=== PATIENT | female | born 1940 | race Caucasian/White ===

== ENCOUNTER 2016-08-07 14:51 | Inpatient (IN) | payer MEDICARE, BC, MEDICAID ==
[~2016-08-07] VITALS: Ht 165.1 cm; Wt 67.4 kg
[~2016-08-07 14:51] MED LIST: ACET-2321 PO; ACET1TAB25 PO; ALBU8.5H INH; AMPH20CA PO; ASPI-1115 PO; BENZ200C36 PO; BIOT10003 PO; BUSP15TA3 PO; CELE100C PO; CHOL400T11 PO; CYAN500T54 SL; ESCI20TA PO; FERR325T40 PO; FLUT9.9S EA NOSTRIL; GLUC100015 PO; LORA0.5T2 PO; LORA0.5T86 PO; MIRA50TA PO; MONT10TA25 PO; MULT-543 PO; ONDA4TAB7 PO; POLY17PO6 PO; POTA20TA87 PO; PRAV20TA4 PO; TRAZ-173 PO; [UNRECOGNIZED DRUG - CODE] PO
--- OUTSIDE RECORDS SUMMARY | 2016-08-07 14:56 | XMS REPORT | Continuity of Care Document ---
Author Author [facility] Organization [facility] Address Unknown Phone Unavailable Support Name Relationship Address Phone HARISH WOODALL Lily GUERRA Caregiver Unknown Unavailable PAWAN ORTEGA MD Caregiver [address] [place] [id number] Unavailable PAWAN ORTEGA MD Caregiver [address] [place] [id number] Unavailable SUNDEEP OLSON Next Of Kin [address], [place] [id number] Insurance Providers Guarantor Leonie Olson Address [address] [place] [address] Email DENIED/NO TO PT PORTAL Payer Medicare Policy Number [id number] Subscriber's Name WesleyGaryLeonie A Relationship 18 Self Effective Date 06 Payer Wish Federal Policy Number [id number] Subscriber's Name Sundeep Olson Relationship 01 Spouse Group Number [id number] Effective Date 87 Advance Directives Directive Response Recorded Date/Time Ordered Resuscitation Status Full Code 10/06/15 11:54am Resuscitation Documents on File No 10/06/15 11:32am DPOA for Healthcare Only Yes 10/06/15 11:32am Problems Active Problems Medical Problem Onset Date Status Ambulatory dysfunction Unknown Chronic Anemia Unknown Acute Balance problem Unknown Chronic CAD (coronary artery disease) Unknown CAD (coronary artery disease) of bypass graft Unknown Chronic DJD (degenerative joint disease) Unknown Chronic Degenerative arthritis of right knee Unknown Chronic Depression Unknown Chronic Fracture of left hip Unknown Acute Generalized weakness Unknown Chronic Hyperlipemia Unknown Chronic Hypertension Unknown Chronic Hypokalemia Unknown Acute Hypothyroidism Unknown Chronic Memory loss Unknown Chronic Overweight (BMI 25.0-29.9) Unknown Chronic SunDown syndrome Unknown Medications Current Home Medications Medication Dose Units Route Directions Days Qty Instructions Start Date Albuterol Sulfate (Proair Hfa 90 Mcg/Actuation) 8.5 Gm Hfa.aer.ad 1 Puff Inhalation Every 4 Hours Prn 05/31/15 Ascorbic Acid (Vitamin C) 500 Mg Tablet 500 Mg Oral Daily Aspirin (Ecotrin) 325 Mg Tablet 325 Mg Oral Twice A Day 84 Tablet take for 6 weeks for DVT prevention 06/17/15 Benzonatate 200 Mg Capsule 1 Cap Oral Three Times A Day as needed for Cough DO NOT BITE, CHEW, OR CRUSH 05/31/15 Cyanocobalamin (Cyanocobalamin Injection) 1,000 Mcg/Ml Vial 1,000 Mcg Intramusc Daily 5 Days 10/10/15 Cyanocobalamin (Vitamin B-12) (Vitamin B-12) 500 Mcg Tab.subl 1 Tab Sublingual Daily 05/31/15 Enoxaparin Sodium (Lovenox) 40 Mg/0.4 Ml Inj 40 Mg Sub-Q Every 24 Hours for Dvt Prevention 17 Days 10/10/15 Escitalopram Oxalate (Lexapro) 20 Mg Tablet 1 Tab Oral Daily Ferrous Sulfate (Iron Supplement) 325 Mg Tablet 1 Tab Oral Daily for Anemia 30 Tablet 10/10/15 Glucosamine Sulfate 2KCL (Glucosamine) 1,000 Mg Tablet 1 Tab Oral Daily 05/31/15 Hydrocodone/Apap 7.5/325 Mg ([place] 7.5-325 Tablet) 7.5-325 Tablet 1-2 Tab Oral Every 6 Hours as needed for Pain 30 Tablet 10/10/15 Montelukast Sodium 10 Mg Tablet 10 Mg Oral Bedtime Take 1 tablet, by mouth, one time a day (at bedtime). 05/31/15 Multivitamins (Multiple Vitamin) 1 Tab Tablet 1 Tab Oral Daily Mv-Mn/Iron/Fa/Herbal Cmplx#190 (Vitamin D3 Complete Caplet) 1 Each Tablet 1 Tab Oral Daily 05/31/15 [place]-3S/Dha/Epa/Fish Oil/D3 ([place]-3 + D Softgel) 1 Each Capsule. 1 Cap Oral Daily 05/31/15 Ondansetron Hcl 4 Mg Tablet 1 Tab Oral Every 6 Hr Prn as needed for Nausea 10 Tablet 10/10/15 Polyethylene Glycol 3350 (Miralax) 17 Gm Packet 17 Gm Oral Daily 30 Packet 06/15/15 Potassium Chloride 20 Meq Tab.er.prt 2 Tab Oral Twice A Day 05/31 Pravastatin Sodium 20 Mg Tablet 1 Tab Oral Bedtime 05/31/15 Sennosides/Docusate Sodium (Senna Plus Tablet) 1 Tab Tablet 1 Tab Oral Twice A Day as needed for Constipation 30 Tablet 10/10/15 Spironolactone 25 Mg Tablet 25 Mg Oral Twice A Day 05/31/15 Terbinafine Hcl 250 Mg Tablet 1 Tab Oral Daily 05/31/15 Past Home Medications Medication Directions Ordered Status Aspirin (Ecotrin) 325 Mg Tablet, 325 Mg Oral Twice A Day 06/15/15 Discontinued Aspirin 325 Mg Tablet, 1 Tab Oral Daily 05/31/15 Discontinued Aspirin/Caffeine (Anacin 400-32 Mg Tablet) 1 Each Tablet, 2 Tab Oral As Needed 06/14/15 Discontinued Hydrocodone/Acetaminophen (Hydrocodon-Acetaminophen 5-325) 1 Tab Tablet, 1-2 Tab Oral Every 5 Hours as needed for Pain 06/15/15 Discontinued Social History Social History Problem Response Recorded Date/Time Onset Date Status Hx Substance Use No 06/14/2015 6:13am Not Applicable Not Applicable Hx Alcohol Use No 06/14/2015 6:13am Not Applicable Not Applicable Has the pt used tobacco in the last 12 months No 10/06/2015 11:38am Not Applicable Not Applicable Tobacco Usage none 10/06/2015 12:49pm Not Applicable Not Applicable Query Response Start Date Stop Date Smoking Status Former smoker Hospital Discharge Instructions Instructions: Care Instructions: Reason for Hospitalization: LEFT HIP FRACTURE I was in the hospital because (patient own words): "I FELL THIS MORNING AND BROKE MY LEFT HIP" Discharge Diet: TOLERATED Discharge Activity: Weight bearing as tolerated on the left leg. Avoid pivoting or twisting on the left leg. Keep the wounds dry. Change dressings PRN. Follow Up Appointments: Андрей ADAMS in [place] on October 27 @ 10:00 am. Pending Lab / Results: No Pending Lab Patient Instructions: Ambulate with a walker. Wt bearing as tolerated on the operative leg. Wound/Incision Care: Change the dressings as needed. Keep the incisions dry. Condition at time of discharge: Good Plan of Care Discharge Date 10/10/15 3:35pm Disposition 03 TO U NOT [facility] ([facility]) Instructions/Education Provided [facility] Postop Instructions Prescriptions See Medication Section Care Plan and Goals See Discharge Instructions Section Functional Status Query Response Date Recorded Mobility Status Ambulatory w/assist October 10, 2015 3:11pm Assistive Devices Front Wheeled Walker October 10, 2015 3:11pm Activity Limitations Weakness Pain October 10, 2015 3:11pm Feeding Ability Independent October 10, 2015 3:11pm Toileting Ability Assist October 10, 2015 3:11pm Grooming Ability Assist October 10, 2015 3:11pm Dressing Ability Assist October 10, 2015 3:11pm Driving Ability Dependent October 10, 2015 3:11pm Housework Ability Assist October 10, 2015 3:11pm Meal Preparation Ability Assist October 10, 2015 3:11pm Stair Climbing Ability Assist October 10, 2015 3:11pm Ability to complete ADL's impeded by Impaired Mobility October 10, 2015 3:11pm Cognitive/Perceptual Impairments Impaired vision October 10, 2015 3:11pm Visual Assistive Devices Glasses With patient October 09, 2015 11:33am Preferred Method of Learning Reading Listening October 09, 2015 11:33am Allergies, Adverse Reactions, Alerts Allergen Type Severity Reaction Status Last Updated Penicillin Allergy Unknown HIVES Active 05/30/15 Immunizations Query Response on File Recorded Date/Time Hx Influenza Vaccination Y FALL 201410/06/15 11:38am Hx Pneumococcal Vaccination Y GIVEN IN [facility] 201410/06/15 11:38am Hx Influenza Vaccination Y FALL 201410/06/15 11:38am Influenza Vaccine Hx fall of 201406/14/15 10:45am Vital Signs Acute Vital Signs Vital Response Date/Time Temperature (Fahrenheit) 97.4 deg F (96.8 - 99.1) 10/10/2015 8:36am Temperature (Calculated Celsius) 36.78458 degrees C (36.0 - 37.3) 10/10/2015 8:36am Temperature Source Oral 10/10/2015 8:36am Pulse Rate (adult) 86 bpm (60 - 100) 10/10/2015 8:36am Respiratory Rate 12 breaths/min (10 - 20) 10/10/2015 8:36am O2 Sat by Pulse Oximetry 95 % (90 - 100) 10/10/2015 8:36am Oxygen Delivery Method Room Air 10/10/2015 8:36am Oxygen Delivery Method Room Air 10/06/2015 9:15pm Oxygen Flow Rate 5.00 L/min 10/10/2015 8:36am Blood Pressure 135/75 mm Hg 10/10/2015 8:36am Blood Pressure Source Automatic Cuff 10/10/2015 8:36am Height (Feet) 5 feet 10/10/2015 1:20pm Height (Inches) 5.00 inches 10/10/2015 1:20pm Weight (Kilograms) 76.900 kg 10/10/2015 7:20am Body Mass Index (BMI) 25.8 10/06/2015 11:19am Results Laboratory Results Test Name Result Units Flags Reference Collection Date/Time Result Date/ Time Comments White Blood Count 5.7 T/MM3 4.5-11.0 10/10/2015 4:06am 10/10/2015 5: 05am Red Blood Count 2.95 M/MM3 L 4.00-5.20 10/10/2015 4:06am 10/10/2015 5: 05am Hemoglobin 8.6 GM/DL L 12-16 10/10/2015 4:06am 10/10/2015 5:05am Hematocrit 25.6 % L 36-46 10/10/2015 4:06am 10/10/2015 5:05am Mean Corpuscular Volume 86.8 UM3 80-100 10/10/2015 4:06am 10/10/2015 5: 05am Mean Corpuscular Hemoglobin 29.2 UUG 26-34 10/10/2015 4:06am 2015 5:05am Mean Corpuscular Hemoglobin Concent 33.6 GM/DL 31-37 10/10/2015 4:06am 10/10/2015 5:05am RDW Standard Deviation 59.8 FL H 36.9-50.2 10/10/2015 4:10/10/2015 5:05am Platelet Count 133 T/MM3 130-400 10/10/2015 4:am 10/10/2015 5:05am Mean Platelet Volume 9.3 UM3 L 9.4-12.4 10/10/2015 4:06am 10/10/2015 5: 05am Neutrophils (%) (Auto) 66.7 % H 33-66 10/10/2015 4:06am 10/10/2015 5: 05am Lymphocytes (%) (Auto) 19.7 % L 23-45 10/10/2015 4:0610/10/2015 5: 05am Monocytes (%) (Auto) 10.3 % H 0-9.0 10/10/2015 4:06am 10/10/2015 5:05am Eosinophils (%) (Auto) 2.8 % 0-4 10/10/2015 4:10/10/2015 5:05am Basophils (%) (Auto) 0.2 % 0-2 10/10/2015 4:10/10/2015 5:05am Immature Granulocyte % (Auto) 0.3 % 0.0-0.5 10/10/2015 4:2015 5:05am Absolute Neutrophils (auto) 3.8 T/MM3 1.8-7.7 10/10/2015 4:2015 5:05am Absolute Lymphocytes (auto) 1.1 T/MM3 1-4.8 10/10/2015 4:2015 5:05am Absolute Monocytes (auto) 0.6 T/MM3 0-0.8 10/10/2015 4:10/10/2015 5:05am Absolute Eosinophils (auto) 0.2 T/MM3 0-0.5 10/10/2015 4:2015 5:05am Absolute Basophils (auto) 0.0 T/MM3 0-0.2 10/10/2015 4:10/10/2015 5:05am Absolute Immature Granulocyte (auto 0.02 T/MM3 0.00-0.03 10/10/2015 4: 10/10/2015 5:05am Absolute Reticulocyte Count 0.0403 T/MM3 0.0300-0.0900 10/08/2015 4: 1210/08/2015 9:24am Percent Reticulocyte Count 1.9 % H 0.6-1.7 10/08/2015 4:1210/08/2015 9:24am Immature Reticulocyte Fraction 3.3 % 3.3-14.5 10/08/2015 4:122015 9:24am Reticulocyte Hgb Content (CHr) 35.3 PG 30.8-36.6 10/08/2015 4:12 9:24am Prothromb Time International Ratio 1.05 0.99-1.21 10/06/2015 12:01pm 10/06/2015 12:20pm THERAPUTIC RANGE=2.00-3.00 FOR ANTI-THROMBOSIS THERAPUTIC RANGE=2.50-3.50 FOR IMPLANTED VALVE Activated Partial Thromboplast Time 27.5 SEC 24-36 10/06/2015 12:01pm 10/06/2015 12:20pm Icterus Index < 2 0-7 10/10/2015 4:0610/10/2015 5:27am Chemistry Specimen Hemolysis < 15 0-25 10/10/2015 4:0610/10/2015 5 :27am 0-25: Specimen Exhibited No Hemolysis. Turbidity < 20 0-20 10/10/2015 4:0610/10/2015 5:27am Sodium Level 138 MEQ/L 134-144 10/10/2015 4:0610/10/2015 5:27am Potassium Level 3.4 MEQ/L L 3.6-5 10/10/2015 4:10/10/2015 5:27am Chloride Level 107 MEQ/L 98-107 10/10/2015 4:0610/10/2015 5:27am Carbon Dioxide Level 25 MEQ/L 22-30 10/10/2015 4:10/10/2015 5: 27am Anion Gap 6 MEQ/L 5-15 10/10/2015 4:0610/10/2015 5:27am Blood Urea Nitrogen 12.0 MG/DL 7-17 10/10/2015 4:0610/10/2015 5: 27am Creatinine 0.6 MG/DL L 0.7-1.2 10/10/2015 4:0610/10/2015 5:27am BUN/Creatinine Ratio 20 RATIO 6-26 10/10/2015 4:10/10/2015 5:27am Glomerular Filtration Rate Calc 98 10/10/2015 4:10/10/2015 5: 27am Glucose Level 98 MG/DL 65-110 10/10/2015 4:10/10/2015 5:27am Calculated Osmolality 266 MOSM/KG 261-280 10/10/2015 4:10/10/2015 5:27am Calcium Level 8.0 MG/DL L 8.4-10.2 10/10/2015 4:0610/10/2015 5:27am Magnesium Level 1.8 MG/DL 1.6-2.3 10/08/2015 4:1210/08/2015 5:17am Iron Level 26 UG/DL L 37-170 10/08/2015 4:12am 10/10/2015 4:40am Total Iron Binding Capacity 226 UG/DL L 261-497 10/08/2015 4:12am 2015 4:40am Percent Iron Saturation 12 % 9-55 10/08/2015 4:12am 10/10/2015 4:40am Vitamin B12 Level 198 PG/ML L 239-931 10/08/2015 4:12am 10/10/2015 4: 40am Folate 15.4 NG/ML 2.76-20 10/08/2015 4:12am 10/10/2015 4:40am NORMAL ADULT RANGE: 2.76->20 ng/mL Urine Collection Type CANAS INDWELLING 10/06/2015 12:35pm 2015 12:48pm Urine Color YELLOW YELLOW 10/06/2015 12:35pm 10/06/2015 12:48pm Urine Turbidity CLEAR CLEAR 10/06/2015 12:35pm 10/06/2015 12:48pm Urine Specific [place] >=1.030 H 1.015-1.025 10/06/2015 12:35pm 2015 12:48pm Urine pH 5.0 5.0-8.0 10/06/2015 12:35pm 10/06/2015 12:48pm Urine Leukocyte Esterase NEGATIVE NEGATIVE 10/06/2015 12:35pm 2015 12:48pm Urine Nitrite NEGATIVE NEGATIVE 10/06/2015 12:35pm 10/06/2015 12: 48pm Urine Protein NEGATIVE NEGATIVE 10/06/2015 12:35pm 10/06/2015 12: 48pm Urine Glucose (UA) NEGATIVE NEGATIVE 10/06/2015 12:35pm 10/06/2015 12 :48pm Urine Ketones NEGATIVE NEGATIVE 10/06/2015 12:35pm 10/06/2015 12: 48pm Urine Urobilinogen 0.2 EU/DL NORMAL 10/06/2015 12:35pm 10/06/2015 12: 48pm Urine Bilirubin NEGATIVE NEGATIVE 10/06/2015 12:35pm 10/06/2015 12: 48pm Urine Blood 1+ A NEGATIVE 10/06/2015 12:35pm 10/06/2015 12:48pm Urine WBC 0-1 /HPF 0-5 10/06/2015 12:35pm 10/06/2015 12:56pm Urine RBC 1-3 /HPF 0-3 10/06/2015 12:35pm 10/06/2015 12:56pm Urine Squamous Epithelial Cells 0-5 10/06/2015 12:35pm 10/06/2015 12:56pm Urine Bacteria TRACE H NEGATIVE 10/06/2015 12:35pm 10/06/2015 12:56pm Urine Amorphous Urates FEW 10/06/2015 12:35pm 10/06/2015 12:56pm Urine Hyaline Casts 0-1 /LPF 10/06/2015 12:35pm 10/06/2015 12:56pm Urine Culture Indicated CULT NOT INDICATED 10/06/2015 12:35pm 10/05 12:56pm Name: LEONIE OLSON Unit #: [id number] : 1940 Sex: F Admit Date: 10/06/15 Loc / Svc: SRG Discharge Date: DIAGNOSTIC IMAGING REPORT Report #: [id number] [place], [place] Indication: ITS.REASON: GAMMA NAIL LEFT HIP PROCEDURE: RF HIP LEFT 2 VIEW: Encounter: Initial Comparison: Outside radiographs from earlier today Findings: Eight fluoroscopic spot images are submitted for interpretation. Images show open reduction and internal fixation of the intertrochanteric left femoral fracture with placement of an intramedullary nail and compression screw. Improved alignment of the fracture fragments. Two threaded distal interlocking screws. Impression: Intraoperative fluoroscopy as above. Fluoroscopy time is 207 seconds. Fluoroscopy dose is 4080 mRad. . Procedures No known history of procedures. Encounters Encounter Location Arrival/Admit Date Discharge/Depart Date Attending Provider Discharged Inpatient [facility] 10/06/15 11:09am 10/10/15 3:35pm PAWAN ORTEGA MD
--- OUTSIDE RECORDS SUMMARY | 2016-08-07 14:56 | XMS REPORT | Continuity of Care Document ---
Demographics Preferred Language Unknown Marital Status Unknown Rastafari Affiliation Unknown Race Unknown Ethnic Group Unknown Author Author [facility] Organization [facility] Address Unknown Phone Unavailable Allergies Medications Problems Procedures Results Encounters ACCT No. Visit Date/Time Discharge Status Pt. Type Provider Facility Loc./Unit Complaint [id number] 07/14/2014 10:32:00 ACT Unknown [id number] 07/14/2014 10:32:00 ACT Unknown [id number] 05/11/2014 08:14:00 ACT Unknown [id number] 05/11/2014 07:45:00 ACT Unknown [id number] 07/06/2013 10:23:00 ACT Unknown [id number] 03/09/2013 10:47:00 ACT Unknown
[2016-08-07] MEDS ORDERED: TRAZ-170 PO (15:13)
--- NOTE | 2016-08-07 15:17 | NUR ---
PROVIDER DR NAVARRO AT BEDSIDE.
--- NOTE | 2016-08-07 15:24 | ERPDOC ---
Departure Disposition Decision Date: Aug 07, 2016 Disposition Decision Time: 16:11 Disposition: 66 TO [facility] Impression Impression Impression: Primary Impression: Depression Depression Type: unspecified Qualified Codes: F32.9 - Major depressive disorder, single episode, unspecified Additional Impression: UTI (urinary tract infection) Urinary tract infection type: acute cystitis Hematuria presence: with hematuria Qualified Codes: N30.01 - Acute cystitis with hematuria Severity: Mild Condition: Improved Seen By: Physician only Referrals: MELECIO SCHULZ MD (Family) Problems/Meds/Labs Reviewed?: Yes Medications reviewed and manag: Yes Follow up care ordered?: Yes Mental Status: Alert, Oriented HPI - Psychosocial General Chief Complaint: Suicide Ideation/Attempt Stated Complaint: EVAL FOR [facility] Time Seen by MD: 15:15 Source: patient (Patient presents to the ER for a [facility] Screen. Patient apparently has been depressed, and made statements Saturday night that if she had a gun, she'd use it. Patient is apparently in rehab from a prior femur fracture), RN notes reviewed, other (Patient has no complaints on examination, but becomes tearful easily.) Exam Limitations: no limitations HPI - Psychosocial Occurred At: home Onset: Changing over time Duration: other Severity: moderate Associated Symptoms: other, suicidal ideation Hx of Similar Symptoms: No Allergies: Coded Allergies: Penicillins (Verified Allergy, Unknown, HIVES, 05/30/15) Past History Patient Surgical History CABG x3- 2001 Cardiac stents- 2008 ECHO and stresstest- 05/2015 (Dr Singleton) Bunionectomy Right knee surgery- 06/2015 ( Dr Rangel) Past Medical History GI: GERD Psychological: depression Surgical History General: other Family History Family PMH: FOUND: other Vaccines Hx Influenza Vaccination: Yes (FALL 2015) Hx Pneumococcal Vaccination: Yes (GIVEN IN [facility] 2014) Social History Does patient use chewing tobac: No Second Hand Exposure: No Substance Use Type: does not use Alcohol Intake: none Marital Status: Sexuality: male partner Housing: group home Service: No Current Occupational Status: retired Occupational Hazard: No Advance Directives: Yes Full Code Record Review Pertinent history updated: Yes Review of Systems Constitutional Constitutional: DENIES: chills, fever Eyes Lids/Accessories: DENIES: erythema, swelling ENMT Ears: DENIES: erythema, pain Balance: DENIES: ataxia, vertigo Sinuses: DENIES: congestion, rhinorrhea Mouth/Throat: DENIES: sore throat Cardiovascular Cardiac: DENIES: chest pain, dyspnea on exertion, orthopnea Rhythm/Rate: DENIES: tachycardia Pulmonary Respiratory: DENIES: cough, dyspnea, sputum GI Upper Abdomen: DENIES: nausea, pain, vomiting Lower Abdomen: DENIES: constipation, diarrhea, pain General: DENIES: dysuria Musculoskeletal General: DENIES: cramps, pain, weakness Integumentary Skin: DENIES: color change, itching, rash Neurological General: DENIES: ataxia, change in strength, headache, numbness, poor coordination, seizures, syncope, vertigo, weakness Psychiatric Psychiatric: depression, suicidal ideation/attempt, DENIES: hallucinations, paranoia Hematologic/Lymphatic Hematologic/Lymphatic: DENIES: anemia Allergic/Immunological Allergic/Immunoligical: DENIES: sneezing All other Systems All Other Systems: Reviewed and Negative Physical Exam General General Nourishment: well nourished, well developed, appears stated age, adult , thin Vitals and Pain First Documented Vital Signs Date Time Temp Pulse Resp B/P Pulse Ox O2 Delivery O2 Flow Rate FiO2 08/07/16 15:05 98.5 92 16 126/61 93 Room Air Weight: Kilograms: 67.200 Height (feet): 5 Height (inches): 5.00 Triage Pain Scale: RN VS reviewed by Provider: Yes Eyes (brief) Eyes Brief: found: EOMI, PERRL ENMT (brief) ENMT Brief: FOUND: TM clear, TM good light reflex, mucosa moist, NOT FOUND: pharnyx erythema Neck (brief) Neck: FOUND: trachea midline, NOT FOUND: adenopathy, tenderness, tracheal deviation Respiratory (brief) Respiratory: FOUND: clear all [place], equal bilaterally Cardiovascular (brief) Cardiac: FOUND: regular rate, regular rhythm Capillary Refill: <2 sec Pulses: all distal extremities, equal, strong Abdomen (brief) Abdominal Brief: FOUND: bowel normo active x4, soft, NOT FOUND: distended, tender Lymphatic (brief) Lymphatic Brief: NOT FOUND: adenopathy Musculoskeletal (brief) Musculoskeletal Brief: NOT FOUND: spasm, tenderness Integumentary (brief) Integumentary Brief: FOUND: pink, warm Neurologic (brief) Neurological Brief: FOUND: CN w/o gross def to obs, gait w/o gross def to obs, motor-no gross deficits, sensory-no gross deficits, NOT FOUND: ataxia Psychiatric (brief) Psychiatric Brief: FOUND: alert, attentive, normal affect, oriented Differential Diagnoses Considering: Delirium, Dementia, Depression, Hallucinations, Homicidal Ideation , Hypoglycemia, [place], Acute Psychosis, Suicidal Attempt, Suicidal Gesture, Suicidal Ideation, Other Progress Results/Orders Orders Procedure Category Date Status Time Cbc W/Auto LAB 08/07/16 Complete Diff-Reflex Manual Cmp - Comprehensive LAB 08/07/16 Complete Metabolic Tsh - Thyroid Stim LAB 08/07/16 Complete Hormone EKG EKG 08/07/16 Taken UA, LAB 08/07/16 Complete Dip&Micro(Complete) & 15:43 Urine Culture CORNELIO 08/07/16 Logged 16:09 Ciprofloxacin (Cipro) PHA 08/07/16 Complete 16:15 Admit To [facility] ADM 08/07/16 Transmitted Unit (Gen) Lab Results Laboratory Tests Test 08/07/16 15:43 08/07/16 15:47 Urine Collection Type Cleancatch-midstream Urine Color Yellow Urine Turbidity Cloudy Urine pH 6.0 Urine Specific [place] 1.025 Urine Protein Trace Urine Glucose (UA) Negative Urine Ketones Negative Urine Blood 1+ Urine Nitrite Negative Urine Bilirubin Negative Urine Urobilinogen 1.0EU/DL Urine Leukocyte Esterase 2+ Urine RBC 3-5/HPF Urine WBC 20-30/HPF Urine WBC Clumps Few Urine Squamous Epithelial Cells 0-5 Urine Bacteria None seen Urine Culture Indicated Cult not indicated White Blood Count 6.1T/MM3 Red Blood Count 3.99M/MM3 Hemoglobin 12.6GM/DL Hematocrit 37.5% Mean Corpuscular Volume 94.0UM3 Mean Corpuscular Hemoglobin 31.6UUG Mean Corpuscular Hemoglobin Concent 33.6GM/DL RDW Standard Deviation 43.4FL Platelet Count 158T/MM3 Mean Platelet Volume 8.7UM3 Immature Granulocyte % (Auto) 0.0% Neutrophils (%) (Auto) 71.8% Lymphocytes (%) (Auto) 14.5% Monocytes (%) (Auto) 9.4% Eosinophils (%) (Auto) 4.1% Basophils (%) (Auto) 0.2% Absolute Immature Granulocyte (auto 0.00T/MM3 Absolute Neutrophils (auto) 4.4T/MM3 Absolute Lymphocytes (auto) 0.9T/MM3 Absolute Monocytes (auto) 0.6T/MM3 Absolute Eosinophils (auto) 0.3T/MM3 Absolute Basophils (auto) 0.0T/MM3 Turbidity < 20 Sodium Level 145MEQ/L Potassium Level 4.1MEQ/L Chloride Level 105MEQ/L Carbon Dioxide Level 26MEQ/L Anion Gap 14MEQ/L Blood Urea Nitrogen 19.0MG/DL Creatinine 0.8MG/DL Glomerular Filtration Rate Calc 70 BUN/Creatinine Ratio 24RATIO Glucose Level 100MG/DL Calculated Osmolality 281MOSM/KG Calcium Level 9.3MG/DL Total Bilirubin 0.60MG/DL Icterus Index < 2 Aspartate Amino Transf (AST/SGOT) 23U/L Alanine Aminotransferase (ALT/SGPT) 29U/L Alkaline Phosphatase 66U/L Total Protein 6.7G/DL Albumin 4.0G/DL Globulin 2.7G/DL Albumin/Globulin Ratio 1.5RATIO Thyroid Stimulating Hormone (TSH) 0.37MIU/L Chemistry Specimen Hemolysis < 15 Medications Current ED Medications Ciprofloxacin (Cipro) 500 mg O ONCE PO Last administered on 08/07/16t 16:17; Start 08/07/16 at 16:15; Stop 08/07/16 at 16:16; Status DC Progress Progress 16:09 Patient is medically clear for [facility] EKG EKG : Rate: 60-100 Rhythm: sinus [place]: normal QRS: normal Intervals: normal ST/T: non-specific changes Interpreted by: signing physician EKG ScImage/Picomm EKG interpreted in ScImage/Pic: CUATE Valentine DO Aug 07, 2016 15:24
--- OUTSIDE RECORDS SUMMARY | 2016-08-07 15:24 | XMS REPORT | Continuity of Care Document ---
Demographics Preferred Language Unknown Marital Status Unknown Mormonism Affiliation Unknown Race Unknown Ethnic Group Unknown Author Author [facility] Organization [facility] Address Unknown Phone Unavailable Allergies Medications Problems Procedures Results Encounters ACCT No. Visit Date/Time Discharge Status Pt. Type Provider Facility Loc./Unit Complaint [id number] 07/14/2014 10:32:00 ACT Unknown [id number] 07/14/2014 10:32:00 ACT Unknown [id number] 05/11/2014 08:14:00 ACT Unknown [id number] 05/11/2014 07:45:00 ACT Unknown [id number] 07/06/2013 10:23:00 ACT Unknown [id number] 03/09/2013 10:47:00 ACT Unknown
[2016-08-07] MEDS ORDERED: POLY119P3 PO (15:28)
--- NOTE | 2016-08-07 15:29 | NUR ---
REPORT GIVEN TO JAVED PALACIOS. CARE ASSUMED.
[2016-08-07] MEDS ORDERED: SENN-152 PO (15:30)
[2016-08-07] MEDS ORDERED: PROP15DR30 BOTH EYES (15:31)
[2016-08-07 15:55] LABS: BLOOD, URINE 1+ (NEGATIVE); COLOR,URINE YELLOW (YELLOW); LEUKOCYTE ESTERASE ,URINE 2+ (NEGATIVE); NITRITE,URINE NEGATIVE (NEGATIVE)
[2016-08-07 15:59] LABS: BASOPHILS % (AUTO) 0.2 % (0-2); EOSINOPHILS # (AUTO) 0.3 T/MM3 (0-0.5); EOSINOPHILS % (AUTO) 4.1 % (0-4); HCT - HEMATOCRIT 37.5 % (36-46); HGB - HEMOGLOBIN 12.6 GM/DL (12-16); LYMPHOCYTES # (AUTO) 0.9 T/MM3 (1-4.8); LYMPHOCYTES % (AUTO) 14.5 % (23-45); MEAN CORPUSCULAR HGB 31.6 UUG (26-34); MEAN CORPUSCULAR HGB CONC(MCHC 33.6 GM/DL (31-37); MEAN PLATELET VOLUME 8.7 UM3 (9.4-12.4); MONOCYTES # (AUTO) 0.6 T/MM3 (0-0.8); MONOCYTES % (AUTO) 9.4 % (0-9.0); NEUTROPHILS #(AUTO)-ABSOLUTE 4.4 T/MM3 (1.8-7.7); NEUTROPHILS % (AUTO) 71.8 % (33-66); RED BLOOD COUNT 3.99 M/MM3 (4.00-5.20); WBC - WHITE BLOOD COUNT 6.1 T/MM3 (4.5-11.0)
[2016-08-07 16:03] LABS: ALBUMIN/GLOBULIN RATIO 1.5 RATIO (1.1-2.2); ALKALINE PHOSPHATASE 66 U/L (38-126); ALT (SGPT) 29 U/L (9-52); ANION GAP 14 MEQ/L (5-15); AST (SGOT) 23 U/L (14-36); BUN/CREATININE RATIO 24 RATIO (6-26); CALCIUM 9.3 MG/DL (8.4-10.2); CHLORIDE 105 MEQ/L (98-107); CO2 - CARBON DIOXIDE 26 MEQ/L (22-30); CREATININE 0.8 MG/DL (0.7-1.2); GLOMERULAR FILTRATION RATE 70; GLUCOSE 100 MG/DL (65-110); POTASSIUM 4.1 MEQ/L (3.6-5); SODIUM 145 MEQ/L (134-144); TOTAL PROTEIN 6.7 G/DL (6.3-8.2)
[2016-08-07 16:05] LABS: BACTERIA,URINE NONE SEEN (NEGATIVE); SQUAMOUS EPITHELIAL CELL,UR 0-5; WBC CLUMPS,URINE FEW; WBC,URINE 20-30 /HPF (0-5)
--- NOTE | 2016-08-07 16:06 | NUR ---
Anxiety Pt verbalizes anxiety over current state of life. Wants to have surgery to correct her leg and ambulation so that she can return to her private residence. Pt is not able to verbalize why her PCP states she can not return home.
[2016-08-07] MEDS ORDERED: CIPROFLOXACIN 500 MG TABLET PO ONE (16:15)
--- OUTSIDE RECORDS SUMMARY | 2016-08-07 16:28 | XMS REPORT | Continuity of Care Document ---
Demographics Preferred Language Unknown Marital Status Unknown Anabaptist Affiliation Unknown Race Unknown Ethnic Group Unknown Author Author [facility] Organization [facility] Address Unknown Phone Unavailable Allergies Medications Problems Procedures Results Encounters ACCT No. Visit Date/Time Discharge Status Pt. Type Provider Facility Loc./Unit Complaint [id number] 07/14/2014 10:32:00 ACT Unknown [id number] 07/14/2014 10:32:00 ACT Unknown [id number] 05/11/2014 08:14:00 ACT Unknown [id number] 05/11/2014 07:45:00 ACT Unknown [id number] 07/06/2013 10:23:00 ACT Unknown [id number] 03/09/2013 10:47:00 ACT Unknown
[2016-08-07 16:33] LABS: THYROID STIM HORMONE-TSH 0.37 MIU/L (0.47-4.68)
[2016-08-07] MEDS ORDERED: LORAZEPAM 2 MG/ML INJECTION IM PRN (17:00)
[2016-08-07] MEDS ORDERED: LORAZEPAM 0.5 MG TABLET PO PRN (17:00)
[2016-08-07] MEDS ORDERED: HALOPERIDOL 5 MG/ML INJECTION IM PRN (17:00)
[2016-08-07] MEDS ORDERED: PRN ORDERS MC (17:00)
[2016-08-07] MEDS ORDERED: HALOPERIDOL 0.5 MG TABLET PO PRN (17:00)
[2016-08-07] MEDS ORDERED: ONDANSETRON ODT 4 MG TAB PO PRN (17:30)
[2016-08-07] MEDS ORDERED: ACETAMINOPHEN/CODEINE 300mg/30mg TABLET PO PRN (17:30)
[2016-08-07] MEDS ORDERED: POLYETHYL.GLYCOL 3350 PACKET 17gm PO PRN (17:30)
[2016-08-07] MEDS ORDERED: ACETAMINOPHEN 325 MG TABLET PO PRN (17:30)
[2016-08-07] MEDS ORDERED: SENNA + DOCUSATE TAB PO PRN (17:30)
[2016-08-07] MEDS ORDERED: BENZONATATE 200 MG CAPSULE PO PRN (17:30)
[2016-08-07] MEDS ORDERED: ALBUTEROL HFA INHALER 8gm ORAL INH SCH (17:30)
[2016-08-07 17:42] VITALS: BP 138/82; PULSE 90; RESP 16; TEMP 97.6; O2SAT 90
[2016-08-07 17:50] VITALS: Ht 165.1 cm; Wt 67.4 kg
--- NOTE | 2016-08-07 18:10 | NUR ---
ADMISSION PT is a 76 year old female admitted to [facility] unit 187. Pt comes to us from [facility] in [facility]. Pt was escorted to the unit by WC from the [facility] ED by [facility] staff at 1636. Pt is a x1 assist with transfers and ambulation and requires the use of a FWW. Pt was angry when coming on to the unit because she states that she was never told that this was happening. Pt was cooperative with assessment and no skin conditions or wounds were seen. Pt has a gold watch, a necklace, two rings and a pair of glasses that are currently with her. Pt states reason for admission as being " I think that they think im crazy". Pt and family were oriented to the unit.
[2016-08-07] MEDS ORDERED: ALBUTEROL INH.SOLN. 2.5mg/3ml (0.083%) Neb. AEROSOL PRN (18:15)
[2016-08-07 20:00] VITALS: PULSE 68; RESP 16; O2SAT 92
[2016-08-07 20:20] VITALS: BP 135/62; PULSE 78; RESP 18; TEMP 96.4; O2SAT 97
--- NOTE | 2016-08-07 20:30 | NUR ---
status arrived on shift, patient was in room visiting with family. Family left at 1915. Once family left patient was passive with assessment. A/Ox4. Patient is able to make needs known. During assessment patient denied pain or discomfort. Patient denied SI, stated she is struggling and just can't get out of it. Took scheduled medications whole without issue. Was asleep in bed at 2014.
[2016-08-07] MEDS: ASPIRIN *EC* 325mg TABLET PO SCH (20:57)
[2016-08-07] MEDS: MONTELUKAST 10 MG TABLET PO SCH (20:57)
[2016-08-07] MEDS: CELECOXIB 100 MG CAPSULE PO SCH (20:57)
[2016-08-07] MEDS: PRAVASTATIN 20 MG TABLET PO SCH (20:57)
[2016-08-07] MEDS: TRAZODONE 50 MG TABLET PO SCH (20:57)
[2016-08-07] MEDS: LORAZEPAM 0.5 MG TABLET PO SCH (21:02)
--- NOTE | 2016-08-08 07:00 | NUR ---
summary Patient woke once during the night after going to sleep to use restroom. While getting up to go to the bathroom patient complained of Left hip and leg pain. Patient received prn Tylenol #3 (2tabs) given po at 0049. Upon reassessment patient was asleep in bed with no signs of pain or discomfort. no further complaints noted. patient is currently still asleep in bed at this time. Patient is able to make needs known.
[2016-08-08] MEDS ORDERED: FISH1CAP28 PO (07:07)
[2016-08-08] MEDS ORDERED: [UNRECOGNIZED DRUG - CODE] PO (07:07)
[2016-08-08] MEDS ORDERED: AMPH20CA PO (07:07)
[2016-08-08 08:00] VITALS: BP 116/67; PULSE 86; RESP 16; TEMP 97.9; O2SAT 99
[2016-08-08] MEDS ORDERED: FERROUS SULFATE 324 MG TABLET PO SCH (08:00)
--- NOTE | 2016-08-08 08:00 | NUR ---
wake up note patient woke up at 0745 this morning
[2016-08-08] MEDS: MIRABEGRON 25 MG TABLET PO SCH (08:44)
[2016-08-08] MEDS: ESCITALOPRAM 20 MG TABLET PO SCH (08:44)
[2016-08-08] MEDS: CYANOCOBALAMIN (B-12) 500mcg TABLET PO SCH (08:44)
[2016-08-08] MEDS: CELECOXIB 100 MG CAPSULE PO SCH ×2 (08:47→19:07)
[2016-08-08] MEDS: CHOLECALCIFEROL 400 UNIT TABLET PO SCH (08:47)
[2016-08-08] MEDS: ASPIRIN *EC* 325mg TABLET PO SCH ×2 (08:47→19:07)
[2016-08-08] MEDS: LORAZEPAM 0.5 MG TABLET PO SCH ×4 (08:48→19:09)
[2016-08-08] MEDS: POTASSIUM CHLORIDE 20 MEQ TABLET PO SCH ×2 (08:48→17:48)
[2016-08-08] MEDS ORDERED: BIOTIN PO SCH (09:00)
[2016-08-08] MEDS ORDERED: FERROUS SULFATE 324 MG TABLET PO ONE (09:00)
[2016-08-08] MEDS: FLUTICASONE NASAL SPRAY 50 MCG EA NOSTRIL SCH (09:13)
[2016-08-08] MEDS: CIPROFLOXACIN 500 MG TABLET PO SCH ×2 (09:13→19:06)
--- NOTE | 2016-08-08 10:04 | HPPDOC ---
DELMA STAPLETON V ROTARY SHEAR WORKER HELPER 08/08/16 0951: HPI - Adult Date DATE: 08/08/16 TIME: 09:40 General Chief Complaint: Depression History of Present Illness Leonie is a 76 yr old female who was brought to [facility] emergency room for evaluation of depression and suicidal statement. Is reported that patient has been more depressed recently. On Saturday. She made a statement that if she had a gun, she did use it. She has been at [facility] in [place] rehabbing from a previous femur fracture. His medically evaluated in the emergency room yesterday. Laboratories are reviewed WBC count 6.0, RBCs 3.99 on a hemoglobin 12.6, hematocrit 37.5, platelet count 158, neutrophils 71.8. Sodium is 145, potassium 4.1, BUN 19, creatinine 0.8, glucose 100. Hemoglobin A1c 5.3. TSH is low at 0.37. A urinalysis was obtained showing a trace of protein, trace blood, 2+ leukocyte esterase, 3-5 RBCs with 20-30 WBCs. She was started on Cipro while the emergency room. She was then screened and accepted for the [facility] unit for further inpatient psychiatric evaluation and treatment. She is seen today while sitting in a recliner in the day room. She is alert and orientated. She states that she is not happy at [facility]. She states that she is scheduled for outpatient procedure with Dr. Rangel this Saturday08/10/16 for hardware change of the left hip. She questions if this is still planned. She denies having any discomfort, shortness of breath or GI complaints. She verbalize she is not sure why she is on the [facility] unit, however, that her primary care provider, Dr. Hinton in [place] told her she had dementia, however, she does not believe this. Past Medical History Past Medical History CAD HTN hypothyroidism Hyperlipidemia Depression Memory loss Surgical History Patient's Surgical History: CABG x3- 2000 Cardiac stents- 2008 ECHO and stresstest- 05/2015 (Dr Singleton) Bunionectomy Right knee surgery- 06/2015 ( Dr Rangel) Left hip surgery- 10/06/15- (Dr Rangel) Current Medications Home Meds Reported Medications Glucosamine Sulfate 2Kcl (Glucosamine Sulfate) 1,000 Mg Capsule, 1000 MG PO DAILY, MG 08/08/16 Edmore-3 Fatty Acids/Fish Oil (Edmore 3 1,000 mg Softgel) 1 Each Capsule, 1000 MG PO DAILY 08/08/16 Dextroamphetamine/Amphetamine (Adderall Xr 20 mg Capsule) 20 Mg Cap.er.24h, 20 MG PO DAILY, CAP 08/08/16 Propylene Glycol/Peg 400 (Lubricant Eye Drops) 15 Ml Drops, 1 DROP BOTH EYES DAILY 08/07/16 Sennosides/Docusate Sodium (Senna Plus Tablet) 1 Tab Tablet, 1 TAB PO BID Y for CONSTIPATION 08/07/16 Polyethylene Glycol 3350 (Miralax) 119 Gm Powder, 8.5-17 G PO DAILY Y for CONSTIPATION 08/07/16 Trazodone HCl (Trazodone HCl) 50 Mg Tablet, 50 MG PO HS 08/07/16 Acetaminophen (Tylenol) 325 Mg Tablet, 650 MG PO Q4-6HPRN Y for PAIN 07/17/16 Acetaminophen with Codeine (Acetaminophen-Cod #3 Tablet) 300-30 Tablet, 1-2 TAB PO Q4HPRN 07/17/16 Ondansetron (Zofran Odt) 4 Mg Tab.rapdis, 4 MG PO Q6HR Y for NAUSEA 07/17/16 Mirabegron (Myrbetriq) 50 Mg Tab.er.24h, 50 MG PO DAILY 07/17/16 Biotin (Biotin) 10,000 Mcg Capsule, 99976 MCG PO DAILY 07/17/16 Celecoxib (Celebrex) 100 Mg Capsule, 100 MG PO BID 07/17/16 Fluticasone Propionate (Flonase Allergy Relief 50 mcg/actuation Nasal) 9.9 Ml [place].susp, 1 SPRAY EA NOSTRIL DAILY 07/17/16 Dextroamphetamine/Amphetamine (Adderall Xr 20 mg Capsule) 20 Mg Cap.er.24h, 20 MG PO DAILY 07/16/16 Ferrous Sulfate (Iron) 325 Mg Tablet, 325 MG PO WB 07/16/16 Cholecalciferol (Vitamin D3) (Vitamin D3) 400 Unit Tablet, 400 UNIT PO DAILY 07/16/16 Aspirin *EC* (Ecotrin) 325 Mg Tablet.dr, 325 MG PO BID 07/16/16 Buspirone HCl (Buspirone HCl) 15 Mg Tablet, 15 MG PO DAILY 07/16/16 Lorazepam (Ativan) 0.5 Mg Tablet, 0.5 MG PO TID Y for ANXIETY 07/16/16 Lorazepam (Lorazepam) 0.5 Mg Tablet, 0.25 MG PO QID 07/16/16 Albuterol Sulfate (Proair HFA 90 mcg/actuation) 8.5 Gm Hfa.aer.ad, 1 PUFF INH Q4HPRN 05/31/15 Escitalopram Oxalate (Lexapro) 20 Mg Tablet, 20 MG PO DAILY 05/31/15 Potassium Chloride (Potassium Chloride) 20 Meq Tab.er.prt, 40 MEQ PO BID DISOLVE & MIX WITH PUDDING OR APPLESAUCE 05/31/15 Montelukast Sodium (Montelukast Sodium) 10 Mg Tablet, 10 MG PO HS 05/31/15 Benzonatate (Benzonatate) 200 Mg Capsule, 200 MG PO TID Y for COUGH 05/31/15 Edmore-3S/Dha/Epa/Fish Oil/D3 (Edmore-3 + D Softgel) 1 Each Capsule.dr, 1 CAP PO DAILY 05/31/15 Glucosamine Sulfate 2Kcl (Glucosamine) 1,000 Mg Tablet, 1000 MCG PO DAILY 05/31/15 Cyanocobalamin (Vitamin B-12) (Vitamin B-12) 500 Mcg Tab.subl, 500 MCG SL DAILY 05/31/15 Pravastatin Sodium (Pravastatin Sodium) 20 Mg Tablet, 20 MG PO HS 05/31/15 Multivitamins (Multiple Vitamin) 1 Tab Tablet, 1 TAB PO DAILY 07/22/09 Allergies: Coded Allergies: Penicillins (Verified Allergy, Unknown, HIVES, 05/30/15) Family History Family History: Father and Mother both with heart disease Social History Smoking Status: Never smoker Does patient use chewing tobac: No Second Hand Exposure: No Substance Use Type: does not use Alcohol Intake: none Marital Status: Sexuality: male partner Housing: skilled nursing ([facility] in [place]) Service: No Current Occupational Status: retired Occupational Hazard: No Advance Directives: Yes DPOA for Healthcare Only, Yes Full Code Social History Comments PCP Dr Monica Hinton ([place]) Review of Systems Unable to Obtain ROS Due to: clinical condition, dementia Comments She denies entire ROS however it is unclear if this is accurate due to mentation Physical Exam General General Nourishment: well nourished, well developed Vital Signs Vital Signs Date Time Temp Pulse Resp B/P Pulse Ox O2 Delivery O2 Flow Rate FiO2 08/08/16 08:00 97.9 86 16 116/67 99 Room Air Height (Feet): 5 Height (Inches): 5.00 Eyes Brief: FOUND: EOMI ENMT Brief: FOUND: mucosa moist, normal dentition Respiratory Brief: FOUND: clear all mckeon, equal bilaterally, NOT FOUND: wheezes Cardiovascular (brief) Cardiac Brief: FOUND: regular rate, regular rhythm, NOT FOUND: murmur, pedal edema Abdomen (brief) Abdominal Brief: FOUND: BS normo active x4, soft, NOT FOUND: distended, tender Musculoskeletal (brief) Musculoskeletal Brief: FOUND: tenderness (left hip- chronic pain) Integumentary (brief) Integumentary Brief: FOUND: dry, pink, warm Neurologic RN Documented GCS Eye Opening: Verbal: Motor: Total: Psychiatric (brief) FOUND: alert, attentive, normal affect, oriented Laboratory Laboratory Tests Test 08/07/16 15:43 08/07/16 15:47 08/08/16 06:36 Urine Collection Type Cleancatch-midstream Urine Color Yellow Urine Turbidity Cloudy Urine pH 6.0 Urine Specific [place] 1.025 Urine Protein Trace Urine Glucose (UA) Negative Urine Ketones Negative Urine Blood 1+ Urine Nitrite Negative Urine Bilirubin Negative Urine Urobilinogen 1.0EU/DL Urine Leukocyte Esterase 2+ Urine RBC 3-5/HPF Urine WBC 20-30/HPF Urine WBC Clumps Few Urine Squamous Epithelial Cells 0-5 Urine Bacteria None seen Urine Culture Indicated Cult not indicated White Blood Count 6.1T/MM3 Red Blood Count 3.99M/MM3 Hemoglobin 12.6GM/DL Hematocrit 37.5% Mean Corpuscular Volume 94.0UM3 Mean Corpuscular Hemoglobin 31.6UUG Mean Corpuscular Hemoglobin Concent 33.6GM/DL RDW Standard Deviation 43.4FL Platelet Count 158T/MM3 Mean Platelet Volume 8.7UM3 Immature Granulocyte % (Auto) 0.0% Neutrophils (%) (Auto) 71.8% Lymphocytes (%) (Auto) 14.5% Monocytes (%) (Auto) 9.4% Eosinophils (%) (Auto) 4.1% Basophils (%) (Auto) 0.2% Absolute Immature Granulocyte (auto 0.00T/MM3 Absolute Neutrophils (auto) 4.4T/MM3 Absolute Lymphocytes (auto) 0.9T/MM3 Absolute Monocytes (auto) 0.6T/MM3 Absolute Eosinophils (auto) 0.3T/MM3 Absolute Basophils (auto) 0.0T/MM3 Turbidity < 20 Sodium Level 145MEQ/L Potassium Level 4.1MEQ/L Chloride Level 105MEQ/L Carbon Dioxide Level 26MEQ/L Anion Gap 14MEQ/L Blood Urea Nitrogen 19.0MG/DL Creatinine 0.8MG/DL Glomerular Filtration Rate Calc 70 BUN/Creatinine Ratio 24RATIO Glucose Level 100MG/DL Calculated Osmolality 281MOSM/KG Calcium Level 9.3MG/DL Total Bilirubin 0.60MG/DL Icterus Index < 2 Aspartate Amino Transf (AST/SGOT) 23U/L Alanine Aminotransferase (ALT/SGPT) 29U/L Alkaline Phosphatase 66U/L Total Protein 6.7G/DL Albumin 4.0G/DL Globulin 2.7G/DL Albumin/Globulin Ratio 1.5RATIO Thyroid Stimulating Hormone (TSH) 0.37MIU/L Chemistry Specimen Hemolysis < 15 Hemoglobin A1c 5.3% Assessment & Plan Problems: (1) UTI (urinary tract infection) Status: Acute Qualifiers: Urinary tract infection type: acute cystitis Hematuria presence: with hematuria Qualified Codes: N30.01 - Acute cystitis with hematuria (2) Depression Status: Acute Qualifiers: Depression Type: unspecified Qualified Codes: F32.9 - Major depressive disorder, single episode, unspecified (3) Memory loss Status: Chronic (4) CAD (coronary artery disease) (5) Hypothyroidism Status: Chronic (6) CAD (coronary artery disease) of bypass graft Status: Chronic (7) Hyperlipemia Status: Chronic Plan/Intensity of Service Agree with admission to [facility] unit under the care of Dr. White for further evaluation and treatment. Will continue with Cipro twice a day for treatment of urinary tract infection In regards to hyperthyroid. Will obtain a free T4 and T3. She has a listed history of hypothyroidism, however, in reviewing home medications. She does not appear to be on any current supplements. The low TSH may be a result from overmedication. Will speak with Orthopedic team to confirm is outpatient hardware surgery is indeed scheduled for this Thursday 08/10. It may need to be rescheduled as patient does require acute inpatient psychiatric care. Recommend continuing MiraLAX and senna plus for bowel motivation. Encourage patient to participate in unit activities and provide a safe environment. The hospitalist services will continue to follow patient for medical management of her existing comorbidities. At time of discharge medical care will return to primary care provider, Elfego Rick Code Status Do Not Resuscitate Hospital Course Summary Disclaimer The hospital course summary below is not to be considered part of the above Progress Note. Hospital Course Summary Agree with admission to [facility] unit under the care of Dr. White for further evaluation and treatment. Will continue with Cipro twice a day for treatment of urinary tract infection In regards to hyperthyroid. Will obtain a free T4 and T3. She has a listed history of hypothyroidism, however, in reviewing home medications. She does not appear to be on any current supplements. The low TSH may be a result from overmedication. Will speak with Orthopedic team to confirm is outpatient hardware surgery is indeed scheduled for this Thursday 08/10. It may need to be rescheduled as patient does require acute inpatient psychiatric care. Recommend continuing MiraLAX and senna plus for bowel motivation. Encourage patient to participate in unit activities and provide a safe environment. The hospitalist services will continue to follow patient for medical management of her existing comorbidities. At time of discharge medical care will return to primary care provider, Elfego Rick STEPHANIE L MD 08/08/16 7011: Past Medical History Current Medications Home Meds Reported Medications Glucosamine Sulfate 2Kcl (Glucosamine Sulfate) 1,000 Mg Capsule, 1000 MG PO DAILY, MG 08/08/16 Edmore-3 Fatty Acids/Fish Oil (Edmore 3 1,000 mg Softgel) 1 Each Capsule, 1000 MG PO DAILY 08/08/16 Dextroamphetamine/Amphetamine (Adderall Xr 20 mg Capsule) 20 Mg Cap.er.24h, 20 MG PO DAILY, CAP 08/08/16 Propylene Glycol/Peg 400 (Lubricant Eye Drops) 15 Ml Drops, 1 DROP BOTH EYES DAILY 08/07/16 Sennosides/Docusate Sodium (Senna Plus Tablet) 1 Tab Tablet, 1 TAB PO BID Y for CONSTIPATION 08/07/16 Polyethylene Glycol 3350 (Miralax) 119 Gm Powder, 8.5-17 G PO DAILY Y for CONSTIPATION 08/07/16 Trazodone HCl (Trazodone HCl) 50 Mg Tablet, 50 MG PO HS 08/07/16 Acetaminophen (Tylenol) 325 Mg Tablet, 650 MG PO Q4-6HPRN Y for PAIN 07/17/16 Acetaminophen with Codeine (Acetaminophen-Cod #3 Tablet) 300-30 Tablet, 1-2 TAB PO Q4HPRN 07/17/16 Ondansetron (Zofran Odt) 4 Mg Tab.rapdis, 4 MG PO Q6HR Y for NAUSEA 07/17/16 Mirabegron (Myrbetriq) 50 Mg Tab.er.24h, 50 MG PO DAILY 07/17/16 Biotin (Biotin) 10,000 Mcg Capsule, 54971 MCG PO DAILY 07/17/16 Celecoxib (Celebrex) 100 Mg Capsule, 100 MG PO BID 07/17/16 Fluticasone Propionate (Flonase Allergy Relief 50 mcg/actuation Nasal) 9.9 Ml [place].susp, 1 SPRAY EA NOSTRIL DAILY 07/17/16 Dextroamphetamine/Amphetamine (Adderall Xr 20 mg Capsule) 20 Mg Cap.er.24h, 20 MG PO DAILY 07/16/16 Ferrous Sulfate (Iron) 325 Mg Tablet, 325 MG PO WB 07/16/16 Cholecalciferol (Vitamin D3) (Vitamin D3) 400 Unit Tablet, 400 UNIT PO DAILY 07/16/16 Aspirin *EC* (Ecotrin) 325 Mg Tablet.dr, 325 MG PO BID 07/16/16 Buspirone HCl (Buspirone HCl) 15 Mg Tablet, 15 MG PO DAILY 07/16/16 Lorazepam (Ativan) 0.5 Mg Tablet, 0.5 MG PO TID Y for ANXIETY 07/16/16 Lorazepam (Lorazepam) 0.5 Mg Tablet, 0.25 MG PO QID 07/16/16 Albuterol Sulfate (Proair HFA 90 mcg/actuation) 8.5 Gm Hfa.aer.ad, 1 PUFF INH Q4HPRN 05/31/15 Escitalopram Oxalate (Lexapro) 20 Mg Tablet, 20 MG PO DAILY 05/31/15 Potassium Chloride (Potassium Chloride) 20 Meq Tab.er.prt, 40 MEQ PO BID DISOLVE & MIX WITH PUDDING OR APPLESAUCE 05/31/15 Montelukast Sodium (Montelukast Sodium) 10 Mg Tablet, 10 MG PO HS 05/31/15 Benzonatate (Benzonatate) 200 Mg Capsule, 200 MG PO TID Y for COUGH 05/31/15 Edmore-3S/Dha/Epa/Fish Oil/D3 (Edmore-3 + D Softgel) 1 Each Capsule.dr, 1 CAP PO DAILY 05/31/15 Glucosamine Sulfate 2Kcl (Glucosamine) 1,000 Mg Tablet, 1000 MCG PO DAILY 05/31/15 Cyanocobalamin (Vitamin B-12) (Vitamin B-12) 500 Mcg Tab.subl, 500 MCG SL DAILY 05/31/15 Pravastatin Sodium (Pravastatin Sodium) 20 Mg Tablet, 20 MG PO HS 05/31/15 Multivitamins (Multiple Vitamin) 1 Tab Tablet, 1 TAB PO DAILY 07/22/09 Allergies: Coded Allergies: Penicillins (Verified Allergy, Unknown, HIVES, 05/30/15) Assessment & Plan Assessment 08/08/2016-I reviewed this chart, the patient history, and the ROTARY SHEAR WORKER HELPER's/PA's documented findings as above. We discussed and formulated the assessment and plan as above with the additions below.-Dr. Huggins The patient was seen in her room this evening accompanied by her granddaughter. The patient complains of some pain in the right lateral hip and states that there is a pin in her hip that was scheduled to come out on Saturday with Dr. Rangel. Dr. Rangel was notified by my nurse practitioner that the patient had been admitted to the [facility] unit and he is recommending rescheduling the surgery after she is discharged. The patient states the pain is not breaking the surface of the skin. She states that she had a stress test on Saturday this week with Dr. Singleton for a preop eval. She has history of coronary artery disease with bypass in the remote past. She states she has not had any chest pains or palpitations. She denies any lightheadedness or shortness of breath. She denies any nausea or vomiting. She states she has been trying to diet recently but appetite is okay. I did encourage her to avoid dieting at this time since she is planning on surgery in the near future. She seemed happy with that plan. She did have some urinary frequency and incontinence recently and that seems to have improved after starting on Cipro for UTI. On exam she is alert and in no acute distress. She is very pleasant. She does state multiple times that she does not like living at the skilled nursing. HEENT reveals sclerae to be anicteric and pupils are equal. Oropharynx is moist. Neck is supple with bilateral bruits. Cardiovascular reveals a regular rate and rhythm without murmur. Abdomen is soft and nontender. Extremities are free of edema. Lab work was reviewed and CBC and CMP are essentially normal. Other lab work is pending. Agree with waiting on free T3 and free T4. Continue current medications for coronary artery disease. Continue Merbetriq for overactive bladder Continue Cipro for UTI We'll plan to reschedule surgery with Dr. Rangel regarding right hip pin that needs to be replaced for some time after the patient has been discharged from [facility]. Regarding coronary artery disease, await results of stress test done Saturday with the patient's firer boiler. We will continue to follow along with you. DELMA STAPLETON APRN Aug 08, 2016 09:51 ISSAC HUGGINS MD Aug 08, 2016 17:41
--- NOTE | 2016-08-08 11:19 | NUR ---
OUTREACH WORKER--AM GROUP Pt. prefers to be called "Nicki". She actively participated in psychoeducational group facilitated by [facility]. Started off group by talking about expectations of the unit and encouraged all patients to engage in some of the activities involved. Talked about different interests and hobbies. Nicki mentioned she collects a certain kind of lars and another patient collects arrow heads. One patient mentioned that she worked too hard and did not have time for hobbies or collections. Talked with patients about importance of taking time for themselves, now that they have time. Reminded them that today can be as special as they make it. Talked about favorite foods from their childhood. Finished up group by listening to Anglican hymhussain. Pt. had been very tearful earlier in the morning and she had been sitting alone in dark in her room prior to group. Her mood and affect improved significantly during group. She spoke up spontaneously and was attentive to what others shared. During music time, she sang out loud and expressed appreciation of the activity.
[2016-08-08 16:00] VITALS: BP 125/66; PULSE 88; RESP 16; TEMP 97; O2SAT 96
--- NOTE | 2016-08-08 16:30 | NUR ---
STAVE LOG RIPSAW OPERATOR--PSH/ADVANCE DIRECTIVE/TX PLAN [facility] attempted to meet with patient to gather information for psychosocial history (PSH). Pt. had a granddaughter that was visiting so not able to interview patient privately. [facility] made phone call to pt's daughter/DPOA-HC (Ade Duenas--[phone]) to gather information for PSH. Confirmed that pt. is DNR. She was born in [place]. She is and her is still living in their home. Patient has two children (Ade--[place] and Truong--[place]). Pt. was hospitalized because of worsening symptoms of depression, including increased periods of tearfulness, frequent mood swings and threats to hurt herself and her PCP. Patient's suicidal plan involved asking her to bring her a gun or forcing herself to fall and hit her head. Symptoms have been getting worse over past two months. The patient is angry that she is not allowed to return to her home in [place]. No history of substance abuse issues and no history of mental health treatment, though she has shown signs of anxiety throughout the years. Pt. is a mosque person and attends holiness whenever possible. She does have several visitors from her community that still visit her. The discharge plan is for pt. to return to placement when stable, though patient is insisting she wants to return home. Addendum: 08/09/16 at 1017 by ELOY VACA Reviewed proposed [place] plan with daughter. She had no additions. She gave permission to sign her name in agreement on the form.
[2016-08-08] MEDS: PRAVASTATIN 20 MG TABLET PO SCH (19:06)
[2016-08-08] MEDS: TRAZODONE 50 MG TABLET PO SCH (19:06)
[2016-08-08] MEDS: MONTELUKAST 10 MG TABLET PO SCH (19:06)
--- NOTE | 2016-08-08 20:06 | NUR ---
SHIFT SUMMARY Patient was cooperative with cares complaint with medications, pleasant. Patient denied any SI thoughts this shift, she states she just wants to go home. Patient did not complain of pain this shift, no inappropriate behaviors noted, no hallucinations or delusions noted. No PRN medications given. Patient is able to verbalize needs. Speech is appropriate. She woke up at 0745 this morning. She was in her room part of the day reading books and looking at books. Patient denies needs or concerns at the moment.
[2016-08-08 20:27] VITALS: BP 121/64; PULSE 76; RESP 18; TEMP 98.2; O2SAT 98
--- NOTE | 2016-08-08 21:14 | GENHPPDOC ---
[facility] 08/08/16 Start Time: 16:40 Stop Time: 17:20 >50% of this visit spent in counseling/coordination care. Chief Complaint: "I have been depressed because I hate living at [facility]" History of Present Illness Patient is a 76-year-old , retired female who was admitted to [facility] on 08/07/16 from [facility] in [place], [place]. On interview, patient is pleasant and cooperative with me, though she is very angry and sad about being in a LTC facility. She states she is here because she and her got in an argument and they both said that they would shoot themselves if they had a gun, and she believes a nurse was listening. Patient denies any thoughts/plan/intent about wanting to but does state that she is miserable living in her LTC facility. She is very unhappy with the physician there "because she told me I had dementia and I would be there forever." She does say she has difficulty remembering names but does not feel she has had cognitive changes otherwise. She denies HI or AVH. Past psychiatric history: Patient denies any history of suicide attempts, psychiatric hospitalizations or psychiatric care. Per facility, patient was admitted in 06/28 and readmitted on 09/28 after hip surgery that led to placement. Her remains in the home but visits daily. They report worsening depression x 2 months and multiple suicidal statements to family and staff over the past 2 days. Patient has also reportedly made homicidal threats about the PCP. She is exit-seeking and reportedly has mood swings. No reported change in sleep or appetite. EKG upon admission: 80 bpm, QTc 415ms Depression: sad, irritable, decreased energy, morbid thinking Dementia: memory impairment Anxiety: worries Past Medical History Past Medical History CAD HTN hypothyroidism Hyperlipidemia Depression Memory loss Surgical History Patient's Surgical History: CABG x3- 2000 Cardiac stents- 2008 ECHO and stresstest- 05/2015 (Dr Singleton) Bunionectomy Right knee surgery- 06/2015 ( Dr Rangel) Left hip surgery- 10/06/15- (Dr Rangel) Current Medications Home Meds Reported Medications Glucosamine Sulfate 2Kcl (Glucosamine Sulfate) 1,000 Mg Capsule, 1000 MG PO DAILY, MG 08/08/16 [place]-3 Fatty Acids/Fish Oil ([place] 3 1,000 mg Softgel) 1 Each Capsule, 1000 MG PO DAILY 08/08/16 Dextroamphetamine/Amphetamine (Adderall Xr 20 mg Capsule) 20 Mg Cap.er.24h, 20 MG PO DAILY, CAP 08/08/16 Propylene Glycol/Peg 400 (Lubricant Eye Drops) 15 Ml Drops, 1 DROP BOTH EYES DAILY 08/07/16 Sennosides/Docusate Sodium (Senna Plus Tablet) 1 Tab Tablet, 1 TAB PO BID Y for CONSTIPATION 08/07/16 Polyethylene Glycol 3350 (Miralax) 119 Gm Powder, 8.5-17 G PO DAILY Y for CONSTIPATION 08/07/16 Trazodone HCl (Trazodone HCl) 50 Mg Tablet, 50 MG PO HS 08/07/16 Acetaminophen (Tylenol) 325 Mg Tablet, 650 MG PO Q4-6HPRN Y for PAIN 07/17/16 Acetaminophen with Codeine (Acetaminophen-Cod #3 Tablet) 300-30 Tablet, 1-2 TAB PO Q4HPRN 07/17/16 Ondansetron (Zofran Odt) 4 Mg Tab.rapdis, 4 MG PO Q6HR Y for NAUSEA 07/17/16 Mirabegron (Myrbetriq) 50 Mg Tab.er.24h, 50 MG PO DAILY 07/17/16 Biotin (Biotin) 10,000 Mcg Capsule, 13355 MCG PO DAILY 07/17/16 Celecoxib (Celebrex) 100 Mg Capsule, 100 MG PO BID 07/17/16 Fluticasone Propionate (Flonase Allergy Relief 50 mcg/actuation Nasal) 9.9 Ml [place].susp, 1 SPRAY EA NOSTRIL DAILY 07/17/16 Dextroamphetamine/Amphetamine (Adderall Xr 20 mg Capsule) 20 Mg Cap.er.24h, 20 MG PO DAILY 07/16/16 Ferrous Sulfate (Iron) 325 Mg Tablet, 325 MG PO WB 07/16/16 Cholecalciferol (Vitamin D3) (Vitamin D3) 400 Unit Tablet, 400 UNIT PO DAILY 07/16/16 Aspirin *EC* (Ecotrin) 325 Mg Tablet.dr, 325 MG PO BID 07/16/16 Buspirone HCl (Buspirone HCl) 15 Mg Tablet, 15 MG PO DAILY 07/16/16 Lorazepam (Ativan) 0.5 Mg Tablet, 0.5 MG PO TID Y for ANXIETY 07/16/16 Lorazepam (Lorazepam) 0.5 Mg Tablet, 0.25 MG PO QID 07/16/16 Albuterol Sulfate (Proair HFA 90 mcg/actuation) 8.5 Gm Hfa.aer.ad, 1 PUFF INH Q4HPRN 05/31/15 Escitalopram Oxalate (Lexapro) 20 Mg Tablet, 20 MG PO DAILY 05/31/15 Potassium Chloride (Potassium Chloride) 20 Meq Tab.er.prt, 40 MEQ PO BID DISOLVE & MIX WITH PUDDING OR APPLESAUCE 05/31/15 Montelukast Sodium (Montelukast Sodium) 10 Mg Tablet, 10 MG PO HS 05/31/15 Benzonatate (Benzonatate) 200 Mg Capsule, 200 MG PO TID Y for COUGH 05/31/15 [place]-3S/Dha/Epa/Fish Oil/D3 ([place]-3 + D Softgel) 1 Each Capsule.dr, 1 CAP PO DAILY 05/31/15 Glucosamine Sulfate 2Kcl (Glucosamine) 1,000 Mg Tablet, 1000 MCG PO DAILY 05/31/15 Cyanocobalamin (Vitamin B-12) (Vitamin B-12) 500 Mcg Tab.subl, 500 MCG SL DAILY 05/31/15 Pravastatin Sodium (Pravastatin Sodium) 20 Mg Tablet, 20 MG PO HS 05/31/15 Multivitamins (Multiple Vitamin) 1 Tab Tablet, 1 TAB PO DAILY 07/22/09 Allergies: Coded Allergies: Penicillins (Verified Allergy, Unknown, HIVES, 05/30/15) Family History Family History: Father and Mother both with heart disease Patient denies family history of dementia or mental illness. 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 Grade (if student): HS graduate Advance Directives: Yes DPOA for Healthcare Only, Yes Full Code Supportive family, requires minimal assistance with cares, able to describe feelings well Review of Systems Constitutional: REPORTS: appetite increase, DENIES: chills, difficulty falling asleep, dizziness, fever, insomnia Eyes General: DENIES: burning, dryness, erythema, exudate, foreign body sensation, itching, other, pain, photophobia, see HPI, subconjunctival bleed, watering ENMT Ears: DENIES: drainage, erythema, foreign body, other, pain, see HPI Balance: DENIES: ataxia, falling to one side, other, see HPI, vertigo Cardiovascular DENIES: chest pain, dyspnea on exertion Pulmonary Respiratory: DENIES: cough, sputum GI Upper Abdomen: DENIES: abdominal swelling, dysphagia, food intolerances, heartburn/indigestion, hematemesis, nausea, other, pain, see HPI, vomiting General: DENIES: burning, dysuria, frequency, pain, urgency Musculoskeletal General: DENIES: pain, weakness Integumentary Skin: DENIES: itching, rash Neurological General: memory disturbances, DENIES: headache, seizures, syncope Psychiatric Psychiatric: anxiety, depression, emotional instability, irritability, memory impairment, suicidal ideation/attempt, DENIES: hallucinations Endocrine DENIES: heat/cold intolerance, polyphagia Hematologic/Lymphatic easy bruising, DENIES: bleeding gums, frequent nosebleeds Allergic/Immunological DENIES: allergic reactions, frequent infections, hives, other, see HPI, sneezing All Other Systems All Other Systems: Reviewed (remainder of 10-point ROS Neg.) Generations Exam Vitals Vital Signs Date Time Temp Pulse Resp B/P Pulse Ox O2 Delivery O2 Flow Rate FiO2 08/08/16 20:27 98.2 76 18 121/64 98 Room Air Physical examination performed by the hospitalist. Height (Feet): 5 Height (Inches): 5.00 Mental Status Exam Muscle Strength/Tone: Normal Dressing: Casual Grooming: Good Attitude: Cooperative Motor Activity: Normal Eye Contact: Good Speech: Normal Volume: Normal Rhythm: Appropriate Rhythm Sensory: Alert Orientation: Disoriented to time, Oriented to person, Oriented to place Mood: Depressed Affect: Other (Tearful) Rate of Thoughts: Appropriate Rate Thought Organization: Organized Associations: Intact Abstract Reasoning: Poor abstract reasoning Thought Content: Delusions (possible in regards to PCP), Ruminations, Helplessness Perception/Psychotic: Perception Normal Attention Span/Concentration: Normal Language: Naming Intact Fund of Knowledge: Chelsea aware current events (though decreased fund of knowledge ) Memory: Poor-recent Suicidal Ideation: Other (Reported to LTC facility with multiple plans) Homicidal Ideation: Denies Insight: Limited Judgment: Limited Impulse Control: Fair Laboratory Tests Test 08/08/16 06:27 08/08/16 06:36 Free Thyroxine Pending Free Triiodothyronine Pending Hemoglobin A1c 5.3% Triglycerides Level Pending Cholesterol Level Pending LDL Cholesterol, Calculated Pending VLDL Cholesterol Pending HDL Cholesterol Direct Pending Cholesterol/HDL Ratio Pending Vitamin B12 Level Pending Folate Pending Assessment and Plan (1) Depression, major, single episode, severe Assessment: with suicidality (2) Cognitive disorder Assessment: unspecified (3) Hyperlipemia (4) Hypothyroidism (5) CAD (coronary artery disease) of bypass graft (6) DJD (degenerative joint disease) (7) Hypertension Evaluate and stabilize. Maintain safety and elopement precautions. Review labwork from admission; order additional as necessary. Obtain further collateral from history. Monitor patient's mood and behavior on the unit. ALMA LAST MD Aug 08, 2016 21:04
--- NOTE | 2016-08-08 23:17 | NUR ---
Shift Summary () Patient is seen in the day room at the start of this shift at 1900; is oriented x3, had just taken HS medications and requested a shower. This RN accompanied patient to her room; assessment performed and shower given by METER RECORD CLERK. She is pleasant and cooperative, denied needs and denied pain. When asked about her reason for admission she says "oh, I said something silly". When asked about thoughts of harming herself or others she denied.
--- NOTE | 2016-08-09 00:31 | NUR ---
Chart Check 24 hour chart check completed
[2016-08-09 00:35] LABS: LDL CHOLESTEROL,CALCULATED 84.6 (66-159); VLDL CHOLESTEROL 15.4 MG/DL (0-28)
--- NOTE | 2016-08-09 03:03 | NUR ---
Sleep Pt. noted in observation checks to be asleep at 2100. Pt. continues to sleep at this time.
[2016-08-09] MEDS: CIPROFLOXACIN 500 MG TABLET PO SCH ×2 (06:29→21:08)
--- NOTE | 2016-08-09 06:31 | NUR ---
Shift Note Slept well during the night. Woke once for the bathroom.
--- NOTE | 2016-08-09 07:00 | NUR ---
Patient slept a total of 10 hours last night
[2016-08-09] MEDS: FERROUS SULFATE 324 MG TABLET PO SCH (08:26)
[2016-08-09] MEDS: POTASSIUM CHLORIDE 20 MEQ TABLET PO SCH ×2 (08:27→17:32)
[2016-08-09] MEDS: CYANOCOBALAMIN (B-12) 500mcg TABLET PO SCH (08:28)
[2016-08-09] MEDS: ESCITALOPRAM 20 MG TABLET PO SCH (08:28)
[2016-08-09] MEDS: CELECOXIB 100 MG CAPSULE PO SCH ×2 (08:28→21:09)
[2016-08-09] MEDS: ASPIRIN *EC* 325mg TABLET PO SCH ×2 (08:28→21:10)
[2016-08-09] MEDS: MIRABEGRON 25 MG TABLET PO SCH (08:28)
[2016-08-09] MEDS: CHOLECALCIFEROL 400 UNIT TABLET PO SCH (08:28)
[2016-08-09] MEDS: LORAZEPAM 0.5 MG TABLET PO SCH ×2 (08:28→21:09)
[2016-08-09] MEDS: FLUTICASONE NASAL SPRAY 50 MCG EA NOSTRIL SCH (08:29)
[2016-08-09 08:48] VITALS: BP 142/62; PULSE 79; RESP 18; TEMP 97.5; O2SAT 94
--- NOTE | 2016-08-09 10:17 | NUR ---
IC DESIGNER CUSTOM--[facility] met [facility]1 with pt. in her room to gather information for PSH. Pt. was sitting in a recliner in her room working word puzzles. She was alert, Ox3, calm with depressed mood and tearful at times. She verified the information provided by her daughter, Ade, for the PSH. Pt. did get tearful when she mentioned she is not as close to her daughter as she used to be and it makes her feel sad. She said Ade is trying to be her boss and make all of her decisions and she feels so frustrated. She acknowledges that [facility] is a very good facility--she has a beautiful room, she has Medicaid to help pay for her care and she really likes her aide. Pt. stated she would lose her Medicaid if she returned home and she says she and her do not have a lot of money. She admits she does not like her PCP at all--Gabriela Hinton. She is agreeable to returning to [facility] as long as she can have a different doctor. She would like for Dr. Cai from [facility] to be her physician. She stated that Dr. Hinton doesn't like her at all and she spends very little time with her when she comes. This SW agreed to share her concern with her daughter to see if getting a different doctor is an option. This SW talked with pt. about difficulty of being a caregiver and about how difficult it is for her daughter, Ade, to be caught in the middle trying to meet needs of both her mother and her father. The patient admits she is hopeful that someday her will be able to join her at [facility] but she worries about him being at home. When asked about being suicidal, she admitted she made a suicidal statement. She said she and her were arguing and he made the statement, "I'll just go get a gun and shoot myself," and she replied, "No you can't do that; you have to come here first so I can use it." Pt. 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 She knows her PCP has dx. her with early stage dementia but she's not sure it is true. This SW talked with her about depression and treatment. Pt. states she is willing to work hard while she is in the hospital. This SW reviewed proposed [place] plan with pt. and explained the goals. Pt. wanted to change goal #3 from "no episodes of tearfulness" to "fewer episodes". She said she has always been a person who cries easily--even when she is happy. Goal changed on TX plan per pt. request. Pt. signed her name on the form in agreement after change was made.
--- NOTE | 2016-08-09 10:42 | NUR ---
SUPPLY CHAIN DEVELOPMENT MANAGER--FAMILY CONTACT [facility] made phone contact with pt's daughter/DPOA-HC, Ade Argueta. Ade was advised about pt's request to change her PCP. Daughter said she thinks her mother doesn't like the doctor because she is the one recommending that pt. stay at [facility] and she is the one who has told pt. that she has early stage memory issues. Daughter thinks that Dr. Hinton is an excellent physician. She is very caring and is medical device sales representative at the facility. Daughter did not think changing physician was a good idea for the patient. She was asked about validity of patient's account regarding her making suicidal statement. She said she was aware of that conversation between her mother and her dad. She thinks her dad was frustrated with her mother when he made that statement about killing himself. She said she talked with her dad and told him he can never make that statement again around the patient, no matter how frustrated he gets with the patient. She said there are no weapons in his home and she is not concerned about his safety. She said the plan is for him to eventually move to [facility] but he is not yet ready. Daughter stated she appreciated the phone call from this SW and was grateful that the patient was opening up and talking candidly about her issues.
--- NOTE | 2016-08-09 11:30 | PNPDOC ---
FABIENNE NEWBY FREQUENCY CHECKER 08/09/16 1128: Subjective Date DATE: 08/09/16 TIME: 11:25 Subjective "Barak" was seen after she walked to her room after breakfast. After her recliner was situated underneath her, she plopped herself down into it, without any muscle control. She states that she is feeling fine, has no complaints. She notes that she probably needs to have a bowel movement today to prevent constipation. She frequently dabs that her nose with a paper towel, and admits that she has allergy problems. She denies any cough or trouble breathing. Her biggest concern is that she does not want to go back to [facility]. Objective Vital Signs Vital signs Vital Signs Date Time Temp Pulse Resp B/P Pulse Ox O2 Delivery O2 Flow Rate FiO2 08/09/16 08:48 97.5 79 18 142/62 94 Room Air Height (Feet): 5 Height (Inches): 5.00 Weight (Kilograms): 68.000 General General Appearance: Alert, Well Nourished, Well Developed, No Acute Distress Eyes (Brief) Eyes: FOUND: PERRL, NOT FOUND: scleral icterus ENMT (Brief) ENMT: FOUND: mucosa moist, nasal exudate (clear rhinorrhea) Respiratory (Brief) Respiratory: FOUND: clear all mckeon, equal bilaterally Cardiovascular (Brief) Cardiac: FOUND: regular rate, regular rhythm Abdomen (Brief) Abdominal: FOUND: BS normo active x4, soft, NOT FOUND: distended, tender Extremities (Brief) Extremity : Side: Bilateral Extremity Finding: NOT FOUND: edema Musculoskeletal (Brief) Musculoskeletal: NOT FOUND: tenderness Integumentary (Brief) Integumentary: FOUND: dry, pink, warm Psychiatric (Brief) Psychiatric: FOUND: alert, attentive, normal affect, oriented Laboratory Laboratory Laboratory Tests 08/07/16 15:47 Laboratory Tests 08/07/16 15:47 Microbiology Microbiology Microbiology Date/Time Source Procedure Growth Status 08/07/16 15:43 Urine, Clean Catch-Midstream Urine Culture - Preliminary NO GROWTH AFTER 24 HOURS Resulted Assessment & Plan Problems: (1) UTI (urinary tract infection) Status: Acute Qualifiers: Urinary tract infection type: acute cystitis Hematuria presence: with hematuria Qualified Codes: N30.01 - Acute cystitis with hematuria (2) Depression Status: Acute Qualifiers: Depression Type: unspecified Qualified Codes: F32.9 - Major depressive disorder, single episode, unspecified (3) Memory loss Status: Chronic (4) CAD (coronary artery disease) (5) Hypothyroidism Status: Chronic (6) CAD (coronary artery disease) of bypass graft Status: Chronic (7) Hyperlipemia Status: Chronic Assessment 08/08/2016-I reviewed this chart, the patient history, and the FREQUENCY CHECKER's/PA's documented findings as above. We discussed and formulated the assessment and plan as above with the additions below.-Dr. Huggins The patient was seen in her room this evening accompanied by her granddaughter. The patient complains of some pain in the right lateral hip and states that there is a pin in her hip that was scheduled to come out on Saturday with Dr. Rangel. Dr. Rangel was notified by my nurse practitioner that the patient had been [facility] to [facility] and he is recommending rescheduling the surgery after she is discharged. The patient states the pain is not breaking the surface of the skin. She states that she had a stress test on Saturday this week with Dr. Singleton for a preop eval. She has history of coronary artery disease with bypass in the remote past. She states she has not had any chest pains or palpitations. She denies any lightheadedness or shortness of breath. She denies any nausea or vomiting. She states she has been trying to diet recently but appetite is okay. I did encourage her to avoid dieting at this time since she is planning on surgery in the near future. She seemed happy with that plan. She did have some urinary frequency and incontinence recently and that seems to have improved after starting on Cipro for UTI. On exam she is alert and in no acute distress. She is very pleasant. She does state multiple times that she does not like living at the longterm. HEENT reveals sclerae to be anicteric and pupils are equal. Oropharynx is moist. Neck is supple with bilateral bruits. Cardiovascular reveals a regular rate and rhythm without murmur. Abdomen is soft and nontender. Extremities are free of edema. Lab work was reviewed and CBC and CMP are essentially normal. Other lab work is pending. Agree with waiting on free T3 and free T4. Continue current medications for coronary artery disease. Continue Merbetriq for overactive bladder Continue Cipro for UTI We'll plan to reschedule surgery with Dr. Rangel regarding right hip pin that needs to be replaced for some time after the patient has been [facility]. Regarding coronary artery disease, await results of stress test done Saturday with the patient's [facility] specialist. We will continue to follow along with you. Plan/Intensity of Service Urine culture shows no growth after 24 hours. At this time, will continue Cipro , and continue to follow urine culture results. Free T3 and T4 are pending. Vitamin B12 and folate are also pending. History of CAD and stroke, blood pressure has been well controlled. Psychiatric evaluation was reviewed. Code Status Do Not Resuscitate Hospital Course Summary Disclaimer The hospital course summary below is not to be considered part of the above Progress Note. Hospital Course Summary Agree with admission to [facility] unit under the care of Dr. White for further evaluation and treatment. Will continue with Cipro twice a day for treatment of urinary tract infection In regards to hyperthyroid. Will obtain a free T4 and T3. She has a listed history of hypothyroidism, however, in reviewing home medications. She does not appear to be on any current supplements. The low TSH may be a result from overmedication. Will speak with Orthopedic team to confirm is outpatient hardware surgery is indeed scheduled for this Thursday 08/10. It may need to be rescheduled as patient does require acute inpatient psychiatric care. Recommend continuing MiraLAX and senna plus for bowel motivation. Encourage patient to participate in unit activities and provide a safe environment. The hospitalist services will continue to follow patient for medical management of her existing comorbidities. At time of discharge medical care will return to primary care provider, Elfego Rick 08/09/16 Urine culture shows no growth after 24 hours. At this time, will continue Cipro , and continue to follow urine culture results. Free T3 and T4 are pending. Vitamin B12 and folate are also pending. History of CAD and stroke, blood pressure has been well controlled. Psychiatric evaluation was reviewed. ISSAC HUGGINS MD 08/09/16 1858: FABIENNE NEWBY FREQUENCY CHECKER Aug 09, 2016 11:28 ISSAC HUGGINS MD Aug 09, 2016 18:58
--- NOTE | 2016-08-09 15:10 | NUR ---
Requested Records Call placed to Dr. Abel Singleton's office requesting copy of stress test per RAMY Lemus. Awaiting return fax
[2016-08-09 16:04] VITALS: BP 142/71; PULSE 82; RESP 16; TEMP 98; O2SAT 95
--- NOTE | 2016-08-09 18:43 | NUR ---
Shift Summary Patient is awake when this RN assumes cares at 0800; she is ambulatory with FWW and steady gait to and from the dining room. She has eaten 100% of her meals independently and has taken all of her medications without hesitation or argument. She was tearful this morning talking with the case management social worker (see prev note) but otherwise has been smiling and visiting appropriately with staff and other patients. She admitted this morning to feeling sad but not wanting to take her life. Presently she is in her room with daughter, granddaughter and
[2016-08-09 19:30] VITALS: BP 141/71; PULSE 83; RESP 16; TEMP 97.8; O2SAT 96
[2016-08-09] MEDS: MONTELUKAST 10 MG TABLET PO SCH (21:10)
[2016-08-09] MEDS: TRAZODONE 50 MG TABLET PO SCH (21:10)
[2016-08-09] MEDS: PRAVASTATIN 20 MG TABLET PO SCH (21:11)
--- NOTE | 2016-08-09 22:23 | NUR ---
SUMMARY PT A&OX3 THROUGHOUT SHIFT. PLEASANT AND APPR WITH STAFF AND CARES. DENIES SUICIDAL IDEATIONS. NO SX OF AGGRESSION, BUT WAS BRIEFLY UPSET BY 186'S BEHAVIOR, SAYING "WHAT IS WRONG WITH HER" AND "HAVE YOU CALLED THE POLICE?" RN ASSURED PT THAT SHE WAS SAFE IN A QUIET, CALMING VOICE AND PT SMILED AND BEGAN TO FALL ASLEEP. SHE TOOK HER MEDICATIONS WITHOUT DIFFICULTY. CURRENTLY IN BED, WITH ALARM ON.
--- NOTE | 2016-08-09 23:41 | NUR ---
Chart Check 24 hour chart check completed
--- NOTE | 2016-08-10 00:13 | NUR ---
Sleep time Noted in observation check; pt. in bed asleep at 2215. Continues to sleep at this time; no distress noted. Bed alarm on.
[2016-08-10 01:51] LABS: FREE T4 (FREE THYROXINE)-BATCH 1.3 NG/DL (0.78-2.19)
[2016-08-10 03:33] LABS: FOLATE > 20.0 NG/ML (2.76-20); VITAMIN B12 - BATCH 382 PG/ML (239-931)
[2016-08-10] MEDS: CIPROFLOXACIN 500 MG TABLET PO SCH ×2 (06:32→20:14)
--- NOTE | 2016-08-10 06:35 | NUR ---
shift note Slept well overnight; 8hrs. Woke for morning pill now; continues to rest in bed.
[2016-08-10 08:30] VITALS: BP 120/80
[2016-08-10] MEDS: CYANOCOBALAMIN (B-12) 500mcg TABLET PO SCH (08:41)
[2016-08-10] MEDS: ASPIRIN *EC* 325mg TABLET PO SCH ×2 (08:41→20:16)
[2016-08-10] MEDS: LORAZEPAM 0.5 MG TABLET PO SCH ×2 (08:41→20:15)
[2016-08-10] MEDS: POTASSIUM CHLORIDE 20 MEQ TABLET PO SCH ×2 (08:42→17:04)
[2016-08-10] MEDS: CHOLECALCIFEROL 400 UNIT TABLET PO SCH (08:42)
[2016-08-10] MEDS: CELECOXIB 100 MG CAPSULE PO SCH ×2 (08:42→20:15)
[2016-08-10] MEDS: MIRABEGRON 25 MG TABLET PO SCH (08:42)
[2016-08-10] MEDS: FLUTICASONE NASAL SPRAY 50 MCG EA NOSTRIL SCH (08:43)
[2016-08-10] MEDS: FERROUS SULFATE 324 MG TABLET PO SCH (08:43)
--- NOTE | 2016-08-10 09:00 | NUR ---
SLEEP 8.50 Hours Pt went to bed at 2045 last night and awoke at 0730. Pt slept a total of 8.5 hours as documented on the 15 minute observation forms.
--- NOTE | 2016-08-10 11:01 | GENPN ---
[facility] Subjective Date DATE: 08/09/16 TIME: 08:16 Subjective/Severity of Illness Medications Current Medications Medications (Trade) Dose Ordered Sig/Tracy Start Time Stop Time Status Last Admin Dose Admin Miscellaneous Medication (May use PRN orders) 1 PRN PRN 08/07/16 17:00 Haloperidol (Haldol) 0.5 mg Q6H PRN 08/07/16 17:00 Lorazepam (Ativan) 0.5 mg Q6H PRN 08/07/16 17:00 Lorazepam (Ativan) 0.5 mg Q6H PRN 08/07/16 17:00 Haloperidol Lactate (Haldol 5 Mg/ml Inj) 0.5 mg Q6H PRN 08/07/16 17:00 Acetaminophen (Tylenol Regular Strength) 650 mg PRN PRN 08/07/16 17:30 Acetaminophen/ Codeine Phosphate (Tylenol #3) 1-2 TABS Q4H PRN 08/07/16 17:30 08/08/16 00:49 2 TAB Albuterol (Ventolin Hfa) 1 puff PRN 08/07/16 17:30 UNV Aspirin (Ecotrin) 325 mg BID 08/07/16 21:00 08/08/16 19:07 325 MG Benzonatate (TESSALON PERLES 200 mg) 200 mg TID PRN 08/07/16 17:30 Buspirone HCl (Buspar) 15 mg DAILY 08/08/16 09:00 08/08/16 08:45 15 MG Celecoxib (CeleBREX) 100 mg BID 08/07/16 21:00 08/08/16 19:07 100 MG Cholecalciferol (Vit. D3) 400 unit DAILY 08/08/16 09:00 08/08/16 08:47 400 UNIT Escitalopram Oxalate (LEXAPRO 20mg) 20 mg DAILY 08/08/16 09:00 08/08/16 08:44 20 MG Ferrous Sulfate (Feosol) 325 mg WB 08/08/16 08:00 08/08/16 08:47 DC Fluticasone Propionate (Flonase) 1 spray DAILY 08/08/16 09:00 08/08/16 09:13 1 SPRAY Lorazepam (Ativan) 0.25 mg QID 08/07/16 21:00 08/08/16 19:09 0.25 MG Mirabegron (Myrbetriq) 50 mg DAILY 08/08/16 09:00 08/08/16 08:44 50 MG Montelukast Sodium (SINGULAIR 10 mg) 10 mg HS 08/07/16 21:00 08/08/16 19:06 10 MG Ondansetron HCl (Zofran Odt) 4 mg Q6HR PRN 08/07/16 17:30 Polyethylene Glycol (Miralax) 1/2-1 PACKET DAILY PRN 08/07/16 17:30 Potassium Chloride (Kdur) 40 meq BIDWM 08/08/16 08:00 08/08/16 17:48 40 MEQ Pravastatin Sodium (Pravachol) 20 mg HS 08/07/16 21:00 08/08/16 19:06 20 MG Senna/Docusate Sodium (Senna Plus) 1 tab BID PRN 08/07/16 17:30 Trazodone HCl (Desyrel) 50 mg HS 08/07/16 21:00 08/08/16 19:06 50 MG Non-Formulary Medication 1 DAILY 08/08/16 09:00 Future Hold Cyanocobalamin (Vit. B-12) 500 mcg DAILY 08/08/16 09:00 08/08/16 08:44 500 MCG Albuterol Sulfate (Proventil 2.5 Mg/3 ml) 2.5 mg PRN PRN 08/07/16 18:15 Ciprofloxacin (Cipro) 500 mg BID/E 08/08/16 09:00 08/09/16 06:29 500 MG Ferrous Sulfate (Feosol) 324 mg WB 08/09/16 08:00 Subjective Patient seen and chart reviewed. Case discussed with treatment team. Patient is pleasant through interview and says she is "happy to be here," but ruminative of having to return to facility throughout interview. She is agreeable to discussed medication changes to help with mood. Per staff, patient has not exhibited any problematic behavior or required any psychotropic PRNs in the past 24 hours. Patient slept well overnight. VSS. Start Time: 08:20 Stop Time: 08:40 Care >50% of this visit spent in counseling/coordination care. [facility] Exam Vitals Vital Signs Date Time Temp Pulse Resp B/P Pulse Ox O2 Delivery O2 Flow Rate FiO2 08/08/16 20:27 98.2 76 18 121/64 98 Room Air Physical examination performed by the hospitalist. Height (Feet): 5 Height (Inches): 5.00 Mental Status Exam Muscle Strength/Tone: Normal Dressing: Casual Grooming: Good Attitude: Cooperative Motor Activity: Normal Eye Contact: Good Speech: Normal Volume: Normal Rhythm: Appropriate Rhythm Sensory: Alert Orientation: Disoriented to time, Oriented to person, Oriented to place Mood: Depressed Affect: Restricted Rate of Thoughts: Appropriate Rate Thought Organization: Organized Associations: Intact Abstract Reasoning: Poor abstract reasoning Thought Content: Ruminations Perception/Psychotic: Perception Normal Attention Span/Concentration: Normal Language: Naming Intact Fund of Knowledge: Chelsea aware current events (but decreased overall) Memory: Poor-recent Suicidal Ideation: Denies Homicidal Ideation: Denies Insight: Limited Judgment: Limited Impulse Control: Fair Assessment and Plan (1) Depression, major, single episode, severe Assessment: with suicidality 08/08/16: Holding Adderall XR since admission. 08/09/16: Decrease lorazepam from 0.25mg PO QID to BID. Decrease Buspar to 7.5mg PO daily with plan to taper/discontinue if possible to avoid polypharmacy. Discontinue Lexapro and switch to Zoloft 100mg PO daily. (2) Cognitive disorder Assessment: unspecified (3) Hyperlipemia (4) Hypothyroidism (5) CAD (coronary artery disease) of bypass graft (6) DJD (degenerative joint disease) (7) Hypertension ALMA LAST MD Aug 09, 2016 08:16
--- NOTE | 2016-08-10 13:50 | NUR ---
SUMMARY PT AWOKE EASILY TO VOICE THIS AM. ASSISTED IN ALL HIS ADL'S. DENIES PAIN THROUGHOUT THE DAY. PT HAS REQUESTED TO CALL HIS ELLA 3 TIMES. HE IS CONSTANTLY WALKING UP AND DOWN THE [place] REPORTING THAT HE HAS TO GET HIS 2 MILES IN EVERYDAY. HE DID BECOME TEARFUL WHILE PRAYING FOR HIS BREAKFAST THIS AM. WAS RE ORIENTED TO PERSON, PLACE AND TIME SEVERAL TIMES THIS SHIFT. HE AT ONE POINT THOUGHT WE WERE AT A FAMILY FUNCTION AND WERE PLANNING ON FISHING. HE WAS PLEASANT. HIS CAME FOR A VISIT AND STAYED 3 HOURS HERE. DURING THIS TIME HE WAS AGITATED AND MORE CONFUSED WAS ASKING WHY WE WERE AT A GAS STATION AND IF HE SHOULD CONTINUE ON OR WHAT SHOULD HE DO. HE ATE LUNCH WITH HIS AND PRAYED FOR THE FAMILY DINNER. REPORTS TO THIS RN HE ASKED HER TO GET HIM A GUN FOR HIS PROTECTION WHILE HERE, ALSO REPORTS THAT PATIENT SEEMS WORSE TO HER THE YESTERDAY. AFTER LEFT PATIENT TOOK A NAP. Addendum: 08/10/16 at 1401 by EZIO DRIVER RN PLEASE DISREGARDED THE PREVIOUS NOTE IT WAS NOT ON THIS PATIENT BROWN.
--- NOTE | 2016-08-10 14:02 | NUR ---
DISREGARD PREVIOUS NOTE WRITTEN BY THIS RN
--- NOTE | 2016-08-10 14:06 | NUR ---
SUMMARY PT HAS BEEN PLEASANT THIS SHIFT. SHE TAKES ALL HER MEDS EASILY. DOES ALL ADL'S WITH STAND BY ASSISTANCE. PT REQUIRED SOME ORIENTATION THIS AM BUT HAS REMAINED AAOX3 THIS SHIFT. SHE HAS NOT VOICED ANY SUICIDAL IDEALIZATIONS THIS SHIFT. SHE HAS NOT HAD ANY PRN'S THIS SHIFT.
--- NOTE | 2016-08-10 16:26 | NUR ---
Status Pt oriented x3, cooperative with assessment. Grand daughter here; painted pts fingernails, helped her with make up, and did her hair. Pt enjoyed this. Pt denies any pain/discomfort at this time. Walking with a SBA with FWW, will continue to monitor.
[2016-08-10 17:02] VITALS: BP 132/67; PULSE 82; RESP 16; TEMP 98.1; O2SAT 98
--- NOTE | 2016-08-10 18:21 | NUR ---
Summary Pt has had no SI during this time I've been here; she hasn't verbalized anything about hurting herself or anyone else. She visited with her granddaughter for awhile and enjoyed this appt. Pt ate well at dinner and then requested to go to her room and look at magazines. Pt has received no prns this shift.
[2016-08-10] MEDS: TRAZODONE 50 MG TABLET PO SCH (20:16)
[2016-08-10] MEDS: PRAVASTATIN 20 MG TABLET PO SCH (20:17)
[2016-08-10] MEDS: MONTELUKAST 10 MG TABLET PO SCH (20:17)
[2016-08-10] MEDS: SERTRALINE 100 MG TABLET PO SCH (20:18)
[2016-08-10 20:46] VITALS: BP 119/50; PULSE 79; RESP 16; TEMP 96.8
--- NOTE | 2016-08-10 21:00 | NUR ---
Bedtime Pt. states she brushed her teeth and used toilet and is ready for bed. Assisted to bed for sleep. Bed alarm on. Took HS meds without difficulty. Calm and cooperative.
--- NOTE | 2016-08-11 03:00 | NUR ---
Chart Check 24 hour chart check completed
--- NOTE | 2016-08-11 06:59 | NUR ---
Summary patient was asleep in bed when arrived on shift. Patient woke shortly after arrival to use restroom, patient had been mostly continent at that time, patient complains of dribbling and stress incontinence. Patient denied pain/discomfort at that time, complained of feeling stiff, denied need for prn at that time. Patient self directed back to bed once done in the restroom. No delusions noted. patient denied SI. Patient has slept from 2100 to current except for 20min for restroom/assessment.
[2016-08-11 08:40] VITALS: BP 151/65; PULSE 88; RESP 16; TEMP 98; O2SAT 94
[2016-08-11] MEDS: CIPROFLOXACIN 500 MG TABLET PO SCH (08:46)
[2016-08-11] MEDS: FERROUS SULFATE 324 MG TABLET PO SCH (08:47)
[2016-08-11] MEDS: POTASSIUM CHLORIDE 20 MEQ TABLET PO SCH ×2 (08:47→17:34)
[2016-08-11] MEDS: LORAZEPAM 0.5 MG TABLET PO SCH ×2 (08:48→20:49)
[2016-08-11] MEDS: FLUTICASONE NASAL SPRAY 50 MCG EA NOSTRIL SCH (08:49)
[2016-08-11] MEDS: CELECOXIB 100 MG CAPSULE PO SCH ×2 (08:49→20:48)
[2016-08-11] MEDS: CHOLECALCIFEROL 400 UNIT TABLET PO SCH (08:49)
[2016-08-11] MEDS: MIRABEGRON 25 MG TABLET PO SCH (08:49)
[2016-08-11] MEDS: CYANOCOBALAMIN (B-12) 500mcg TABLET PO SCH (08:49)
[2016-08-11] MEDS: ASPIRIN *EC* 325mg TABLET PO SCH (08:49)
--- NOTE | 2016-08-11 13:17 | PNPDOC ---
Subjective Date DATE: 08/11/16 TIME: 13:03 Subjective Nicki is up in a meeting room with her family. She is disappointed that I am not the doctor. She wants to go home- "I could walk home in the rain." She makes poor eye contact. Fairly flat affect. Eye makeup is smeared around her eyes (recently crying?). Denies any acute medical needs. Chart reviewed for collateral information. Objective Vital Signs Vital signs Vital Signs Date Time Temp Pulse Resp B/P Pulse Ox O2 Delivery O2 Flow Rate FiO2 08/11/16 08:40 98.0 88 16 151/65 94 Room Air Height (Feet): 5 Height (Inches): 5.00 Weight (Kilograms): 68.000 General General Appearance: Alert, Cooperative, No Acute Distress Eyes (Brief) Eyes: FOUND: EOMI, PERRL, NOT FOUND: foreign body, scleral icterus Neck (Brief) Neck: FOUND: midline, NOT FOUND: JVD, nuchal rigidity, spasm Respiratory (Brief) Respiratory: FOUND: clear all mckeon, equal bilaterally, symmetrical, NOT FOUND : rales, wheezes Cardiovascular (Brief) Cardiac: FOUND: regular rate, regular rhythm, NOT FOUND: murmur, pedal edema Abdomen (Brief) Abdominal: FOUND: BS normo active x4, soft, NOT FOUND: distended, tender Extremities (Brief) Extremity : Side: Bilateral Extremity Finding: NOT FOUND: edema Integumentary (Brief) Integumentary: FOUND: dry, pink, warm Psychiatric (Brief) Psychiatric: FOUND: alert, attentive, NOT FOUND: normal affect Microbiology Microbiology MICROBIOLOGY URINE CULTURE. Final 08/10/16 Organism 1 MIXED GRAM POSITIVE ORGANISMS COLONY COUNT 10,000 - 50,000 CFU/ml ORGANISM COMMENT: NO SENSITIVITY PERFORMED Sepsis Diagnostic Criteria Sepsis Confirmed/Suspected Infection: Yes Assessment & Plan Problems: (1) Depression Status: Acute Qualifiers: Depression Type: unspecified Qualified Codes: F32.9 - Major depressive disorder, single episode, unspecified (2) UTI (urinary tract infection) Status: Acute Qualifiers: Urinary tract infection type: acute cystitis Hematuria presence: with hematuria Qualified Codes: N30.01 - Acute cystitis with hematuria Assessment & Plan: MICROBIOLOGY URINE CULTURE. Final 08/10/16 Organism 1 MIXED GRAM POSITIVE ORGANISMS COLONY COUNT 10,000 - 50,000 CFU/ml ORGANISM COMMENT: NO SENSITIVITY PERFORMED (3) Memory loss Status: Chronic (4) CAD (coronary artery disease) (5) Hypothyroidism Status: Chronic (6) CAD (coronary artery disease) of bypass graft Status: Chronic (7) Hyperlipemia Status: Chronic Assessment 08/11/16- Chart is reviewed. Her affect remains flat- less S.I. expressed. We need to stop Singulair- side effects of neuropsychosis and suicidal ideations. No wheezing or cough- if pulmonary concerns, optimize inhalers. UTI- Gram positive. Change from Cipro to Keflex for 5 days. Hx of CAD- recent stress test. She is on BID full strength ASA. Decrease to ASA 325mg daily. Repeat labs in AM- she is on BID, need to monitor potassium levels. Will need a hip revision- to be done later when medically stable. Continue supportive care. Again, labs ordered for tomorrow. Code Status Do Not Resuscitate Hospital Course Summary Disclaimer The hospital course summary below is not to be considered part of the above Progress Note. Hospital Course Summary Agree with admission to [facility] under the care of Dr. White for further evaluation and treatment. Will continue with Cipro twice a day for treatment of urinary tract infection In regards to hyperthyroid. Will obtain a free T4 and T3. She has a listed history of hypothyroidism, however, in reviewing home medications. She does not appear to be on any current supplements. The low TSH may be a result from overmedication. Will speak with Orthopedic team to confirm is outpatient hardware surgery is indeed scheduled for this Thursday 08/10. It may need to be rescheduled as patient does require acute inpatient psychiatric care. Recommend continuing MiraLAX and senna plus for bowel motivation. Encourage patient to participate in unit activities and provide a safe environment. The hospitalist services will continue to follow patient for medical management of her existing comorbidities. At time of discharge medical care will return to primary care provider, Elfego Rick 08/09/16 Urine culture shows no growth after 24 hours. At this time, will continue Cipro , and continue to follow urine culture results. Free T3 and T4 are pending. Vitamin B12 and folate are also pending. History of CAD and stroke, blood pressure has been well controlled. Psychiatric evaluation was reviewed. 08/11/16- Chart is reviewed. Her affect remains flat- less S.I. expressed. We need to stop Singulair- side effects of neuropsychosis and suicidal ideations. No wheezing or cough- if pulmonary concerns, optimize inhalers. UTI- Gram positive. Change from Cipro to Keflex for 5 days. Hx of CAD- recent stress test. She is on BID full strength ASA. Decrease to ASA 325mg daily. Repeat labs in AM- she is on BID, need to monitor potassium levels. Will need a hip revision- to be done later when medically stable. Continue supportive care. Again, labs ordered for tomorrow. SELINA PANTOJA SHANK TAPER Aug 11, 2016 13:06
[2016-08-11 16:25] VITALS: BP 136/69; PULSE 74; RESP 16; TEMP 97.8; O2SAT 94
--- NOTE | 2016-08-11 16:41 | GENPN ---
[facility] Subject[facility] Date DATE: 08/11/16 TIME: 10:17 Subjective/Severity of Illness Medications Current Medications Medications (Trade) Dose Ordered Sig/Tracy Start Time Stop Time Status Last Admin Dose Admin Miscellaneous Medication (May use PRN orders) 1 PRN PRN 08/07/16 17:00 Haloperidol (Haldol) 0.5 mg Q6H PRN 08/07/16 17:00 Lorazepam (Ativan) 0.5 mg Q6H PRN 08/07/16 17:00 Lorazepam (Ativan) 0.5 mg Q6H PRN 08/07/16 17:00 Haloperidol Lactate (Haldol 5 Mg/ml Inj) 0.5 mg Q6H PRN 08/07/16 17:00 Acetaminophen (Tylenol Regular Strength) 650 mg PRN PRN 08/07/16 17:30 Acetaminophen/ Codeine Phosphate (Tylenol #3) 1-2 TABS Q4H PRN 08/07/16 17:30 08/08/16 00:49 2 TAB Albuterol (Ventolin Hfa) 1 puff PRN 08/07/16 17:30 UNV Aspirin (Ecotrin) 325 mg BID 08/07/16 21:00 08/11/16 08:49 325 MG Benzonatate (TESSALON PERLES 200 mg) 200 mg TID PRN 08/07/16 17:30 Buspirone HCl (Buspar) 15 mg DAILY 08/08/16 09:00 08/09/16 09:28 DC 08/09/16 08:28 15 MG Celecoxib (CeleBREX) 100 mg BID 08/07/16 21:00 08/11/16 08:49 100 MG Cholecalciferol (Vit. D3) 400 unit DAILY 08/08/16 09:00 08/11/16 08:49 400 UNIT Escitalopram Oxalate (LEXAPRO 20mg) 20 mg DAILY 08/08/16 09:00 08/09/16 09:28 DC 08/09/16 08:28 20 MG Ferrous Sulfate (Feosol) 325 mg WB 08/08/16 08:00 08/08/16 08:47 DC Fluticasone Propionate (Flonase) 1 spray DAILY 08/08/16 09:00 08/11/16 08:49 1 SPRAY Lorazepam (Ativan) 0.25 mg QID 08/07/16 21:00 08/09/16 09:28 DC 08/09/16 08:28 0.25 MG Mirabegron (Myrbetriq) 50 mg DAILY 08/08/16 09:00 08/11/16 08:49 50 MG Montelukast Sodium (SINGULAIR 10 mg) 10 mg HS 08/07/16 21:00 08/10/16 20:17 10 MG Ondansetron HCl (Zofran Odt) 4 mg Q6HR PRN 08/07/16 17:30 Polyethylene Glycol (Miralax) 1/2-1 PACKET DAILY PRN 08/07/16 17:30 Potassium Chloride (Kdur) 40 meq BIDWM 08/08/16 08:00 08/11/16 08:47 40 MEQ Pravastatin Sodium (Pravachol) 20 mg HS 08/07/16 21:00 08/10/16 20:17 20 MG Senna/Docusate Sodium (Senna Plus) 1 tab BID PRN 08/07/16 17:30 Trazodone HCl (Desyrel) 50 mg HS 08/07/16 21:00 08/10/16 20:16 50 MG Non-Formulary Medication 1 DAILY 08/08/16 09:00 Future Hold Cyanocobalamin (Vit. B-12) 500 mcg DAILY 08/08/16 09:00 08/11/16 08:49 500 MCG Albuterol Sulfate (Proventil 2.5 Mg/3 ml) 2.5 mg PRN PRN 08/07/16 18:15 Ciprofloxacin (Cipro) 500 mg BID/E 08/08/16 09:00 08/11/16 08:46 500 MG Ferrous Sulfate (Feosol) 324 mg WB 08/09/16 08:00 08/11/16 08:47 324 MG Buspirone HCl (Buspar) 7.5 mg DAILY 08/10/16 09:00 08/11/16 08:48 7.5 MG Lorazepam (Ativan) 0.25 mg BID 08/09/16 21:00 08/11/16 08:48 0.25 MG Sertraline HCl (Zoloft) 100 mg HS 08/10/16 21:00 08/10/16 20:18 100 MG Subjective Patient seen and chart reviewed. Case discussed with treatment team. Patient is pleasant through interview. Family is visiting and she seems to really be enjoying this. Discussed medication changes with family and they are in agreement with plan. They feel she is less emotional, more steady, and "more accepting" since medication changes. Patient would like to change her PCP if possible though her daughter has been resistant to this. Patient denies any current SI, HI, AVH or adverse side effects associated with medications. Per staff, patient has not exhibited any problematic behavior or required any psychotropic PRNs in the past 24 hours. Patient slept 10.25 hours overnight. Good appetite. VSS. Start Time: 13:00 Stop Time: 13:20 Care >50% of this visit spent in counseling/coordination care. [facility] Exam Vitals Vital Signs Date Time Temp Pulse Resp B/P Pulse Ox O2 Delivery O2 Flow Rate FiO2 08/10/16 20:46 96.8 79 16 119/50 Room Air 08/10/16 17:02 98 Physical examination performed by the hospitalist. Height (Feet): 5 Height (Inches): 5.00 Mental Status Exam Muscle Strength/Tone: Normal Dressing: Casual Grooming: Good Attitude: Cooperative Motor Activity: Normal Eye Contact: Good Speech: Normal Volume: Normal Rhythm: Appropriate Rhythm Sensory: Alert Orientation: Disoriented to time, Oriented to person, Oriented to place Mood: Neutral Affect: Stable Rate of Thoughts: Appropriate Rate Thought Organization: Organized Associations: Intact Abstract Reasoning: Intact, able to abstract Thought Content: Other (Less ruminative) Perception/Psychotic: Perception Normal Attention Span/Concentration: Normal Language: Naming Intact Fund of Knowledge: Chelsea aware current events Memory: Grossly Intact Suicidal Ideation: Denies Homicidal Ideation: Denies Insight: Limited Judgment: Limited Impulse Control: Good Assessment and Plan (1) Depression, major, single episode, severe Assessment: with suicidality 08/08/16: Holding Adderall XR since admission. 08/09/16: Decrease lorazepam from 0.25mg PO QID to BID. Decrease Buspar to 7.5mg PO daily with plan to taper/discontinue if possible to avoid polypharmacy. Discontinue Lexapro and switch to Zoloft 100mg PO daily. 08/11/16: Continue current medications; may consider decreasing lorazepam further and discontinuing Buspar if patient tolerates these changes. Will order NIRAV/RIPPA per family's request. (2) Cognitive disorder Assessment: unspecified (3) Hyperlipemia (4) Hypothyroidism (5) CAD (coronary artery disease) of bypass graft (6) DJD (degenerative joint disease) (7) Hypertension ALMA LAST MD Aug 11, 2016 10:17
[2016-08-11] MEDS: CEPHALEXIN 500 MG CAPSULE PO SCH (17:34)
--- NOTE | 2016-08-11 19:30 | NUR ---
Shift Summary Patient is awake at the time this RN assumed cares (07). She is independent with ADLs requiring only set-up help as hygiene products are in lock-up per unit policy. She denied suicidal thoughts this morning; took all medications whole without argument or incident. Family has been here most of the afternoon visiting in her room or in the group room; her granddaughter fixed her hair. She has not been tearful this shift.
--- NOTE | 2016-08-11 20:45 | NUR ---
bedtime pt went to sleep in bed. Addendum: 08/12/16 at 0416 by HUMZA HERNANDEZ RN pt took evening meds without difficulty.
[2016-08-11] MEDS: PRAVASTATIN 20 MG TABLET PO SCH (20:48)
[2016-08-11] MEDS: TRAZODONE 50 MG TABLET PO SCH (20:49)
[2016-08-11] MEDS: SERTRALINE 100 MG TABLET PO SCH (20:49)
[2016-08-11 22:33] VITALS: BP 131/69; PULSE 83; RESP 20; TEMP 98; O2SAT 96
[2016-08-12] MEDS: CEPHALEXIN 500 MG CAPSULE PO SCH ×3 (02:27→17:19)
--- NOTE | 2016-08-12 05:43 | NUR ---
Chart Check 24 hour chart check completed
--- NOTE | 2016-08-12 06:33 | NUR ---
shift summary Pt a/o x2 and has been cooperative and appropriate throughout shift. pt has taken all medications well and positive affect during staff interactions. Pt has not mentioned any SI or wanting to harm anyone else. pt has not demonstrated any tearfulness during shift.
[2016-08-12 06:49] LABS: BASOPHILS % (AUTO) 0.2 % (0-2); EOSINOPHILS # (AUTO) 0.3 T/MM3 (0-0.5); EOSINOPHILS % (AUTO) 6.9 % (0-4); HCT - HEMATOCRIT 35.9 % (36-46); HGB - HEMOGLOBIN 11.8 GM/DL (12-16); IMMATURE GRANULOCYTE # (AUTO) 0.01 T/MM3 (0.00-0.03); IMMATURE GRANULOCYTE % (AUTO) 0.2 % (0.0-0.5); LYMPHOCYTES # (AUTO) 0.9 T/MM3 (1-4.8); LYMPHOCYTES % (AUTO) 22.5 % (23-45); MEAN CORPUSCULAR HGB 31.1 UUG (26-34); MEAN CORPUSCULAR HGB CONC(MCHC 32.9 GM/DL (31-37); MEAN CORPUSCULAR VOLUME 94.7 UM3 (80-100); MEAN PLATELET VOLUME 9.1 UM3 (9.4-12.4); MONOCYTES # (AUTO) 0.5 T/MM3 (0-0.8); NEUTROPHILS #(AUTO)-ABSOLUTE 2.4 T/MM3 (1.8-7.7); NEUTROPHILS % (AUTO) 58.2 % (33-66); RED BLOOD COUNT 3.79 M/MM3 (4.00-5.20); WBC - WHITE BLOOD COUNT 4.2 T/MM3 (4.5-11.0)
[2016-08-12 06:55] LABS: ALBUMIN 3.5 G/DL (3.5-5.0); ANION GAP 9 MEQ/L (5-15); BUN/CREATININE RATIO 30 RATIO (6-26); CALCIUM 9.2 MG/DL (8.4-10.2); CHLORIDE 108 MEQ/L (98-107); CO2 - CARBON DIOXIDE 26 MEQ/L (22-30); CREATININE 0.7 MG/DL (0.7-1.2); GLOMERULAR FILTRATION RATE 82; GLUCOSE 96 MG/DL (65-110); SODIUM 143 MEQ/L (134-144)
--- NOTE | 2016-08-12 07:45 | NUR ---
NOC sleep time: 10.75 hours
[2016-08-12 08:00] VITALS: BP 120/58; PULSE 98; RESP 20; TEMP 97.9; O2SAT 97
[2016-08-12] MEDS: FERROUS SULFATE 324 MG TABLET PO SCH (08:32)
[2016-08-12] MEDS: POTASSIUM CHLORIDE 20 MEQ TABLET PO SCH ×2 (08:33→17:21)
[2016-08-12] MEDS: LORAZEPAM 0.5 MG TABLET PO SCH ×2 (08:34→20:35)
[2016-08-12] MEDS: CELECOXIB 100 MG CAPSULE PO SCH ×2 (08:34→20:36)
[2016-08-12] MEDS: ASPIRIN *EC* 325mg TABLET PO SCH (08:35)
[2016-08-12] MEDS: CYANOCOBALAMIN (B-12) 500mcg TABLET PO SCH (08:35)
[2016-08-12] MEDS: MIRABEGRON 25 MG TABLET PO SCH (08:35)
[2016-08-12] MEDS: CHOLECALCIFEROL 400 UNIT TABLET PO SCH (08:35)
[2016-08-12] MEDS: FLUTICASONE NASAL SPRAY 50 MCG EA NOSTRIL SCH (08:36)
--- NOTE | 2016-08-12 14:35 | GENPN ---
[facility] Subjective Date DATE: 08/12/16 TIME: 09:45 Subjective/Severity of Illness Medications Current Medications Medications (Trade) Dose Ordered Sig/Tracy Start Time Stop Time Status Last Admin Dose Admin Miscellaneous Medication (May use PRN orders) 1 PRN PRN 08/07/16 17:00 Haloperidol (Haldol) 0.5 mg Q6H PRN 08/07/16 17:00 Lorazepam (Ativan) 0.5 mg Q6H PRN 08/07/16 17:00 Lorazepam (Ativan) 0.5 mg Q6H PRN 08/07/16 17:00 Haloperidol Lactate (Haldol 5 Mg/ml Inj) 0.5 mg Q6H PRN 08/07/16 17:00 Acetaminophen (Tylenol Regular Strength) 650 mg PRN PRN 08/07/16 17:30 Acetaminophen/ Codeine Phosphate (Tylenol #3) 1-2 TABS Q4H PRN 08/07/16 17:30 08/08/16 00:49 2 TAB Albuterol (Ventolin Hfa) 1 puff PRN 08/07/16 17:30 UNV Aspirin (Ecotrin) 325 mg BID 08/07/16 21:00 08/11/16 13:18 DC 08/11/16 08:49 325 MG Benzonatate (TESSALON PERLES 200 mg) 200 mg TID PRN 08/07/16 17:30 Buspirone HCl (Buspar) 15 mg DAILY 08/08/16 09:00 08/09/16 09:28 DC 08/09/16 08:28 15 MG Celecoxib (CeleBREX) 100 mg BID 08/07/16 21:00 08/12/16 08:34 100 MG Cholecalciferol (Vit. D3) 400 unit DAILY 08/08/16 09:00 08/12/16 08:35 400 UNIT Escitalopram Oxalate (LEXAPRO 20mg) 20 mg DAILY 08/08/16 09:00 08/09/16 09:28 DC 08/09/16 08:28 20 MG Ferrous Sulfate (Feosol) 325 mg WB 08/08/16 08:00 08/08/16 08:47 DC Fluticasone Propionate (Flonase) 1 spray DAILY 08/08/16 09:00 08/12/16 08:36 1 SPRAY Lorazepam (Ativan) 0.25 mg QID 08/07/16 21:00 08/09/16 09:28 DC 08/09/16 08:28 0.25 MG Mirabegron (Myrbetriq) 50 mg DAILY 08/08/16 09:00 08/12/16 08:35 50 MG Montelukast Sodium (SINGULAIR 10 mg) 10 mg HS 08/07/16 21:00 08/11/16 13:18 DC 08/10/16 20:17 10 MG Ondansetron HCl (Zofran Odt) 4 mg Q6HR PRN 08/07/16 17:30 Polyethylene Glycol (Miralax) 1/2-1 PACKET DAILY PRN 08/07/16 17:30 Potassium Chloride (Kdur) 40 meq BIDWM 08/08/16 08:00 08/12/16 08:33 40 MEQ Pravastatin Sodium (Pravachol) 20 mg HS 08/07/16 21:00 08/11/16 20:48 20 MG Senna/Docusate Sodium (Senna Plus) 1 tab BID PRN 08/07/16 17:30 Trazodone HCl (Desyrel) 50 mg HS 08/07/16 21:00 08/11/16 20:49 50 MG Non-Formulary Medication 1 DAILY 08/08/16 09:00 Future Hold Cyanocobalamin (Vit. B-12) 500 mcg DAILY 08/08/16 09:00 08/12/16 08:35 500 MCG Albuterol Sulfate (Proventil 2.5 Mg/3 ml) 2.5 mg PRN PRN 08/07/16 18:15 Ciprofloxacin (Cipro) 500 mg BID/E 08/08/16 09:00 08/11/16 13:18 DC 08/11/16 08:46 500 MG Ferrous Sulfate (Feosol) 324 mg WB 08/09/16 08:00 08/12/16 08:32 324 MG Buspirone HCl (Buspar) 7.5 mg DAILY 08/10/16 09:00 08/12/16 08:34 7.5 MG Lorazepam (Ativan) 0.25 mg BID 08/09/16 21:00 08/12/16 08:34 0.25 MG Sertraline HCl (Zoloft) 100 mg HS 08/10/16 21:00 08/11/16 20:49 100 MG Aspirin (Ecotrin) 325 mg DAILY 08/12/16 09:00 08/12/16 08:35 325 MG Cephalexin HCl (Keflex) 500 mg Q8HR 08/11/16 17:00 08/16/16 16:59 08/12/16 08:35 500 MG Subjective Patient seen and chart reviewed. Case discussed with treatment team. Patient is pleasant through interview. Patient is pleasant, would like to d/c back home but is accepting of waiting for results of testing. Family reports she is less emotional, more steady, and "more accepting" since medication changes. Patient would like to change her PCP if possible though her daughter has been resistant to this. Patient denies any current SI, HI, AVH or adverse side effects associated with medications. Per staff, patient has not exhibited any problematic behavior or required any psychotropic PRNs in the past 24 hours. Patient slept well overnight. Good appetite. VSS. Start Time: 08:20 Stop Time: 08:40 Care >50% of this visit spent in counseling/coordination care. [facility] Exam Vitals Vital Signs Date Time Temp Pulse Resp B/P Pulse Ox O2 Delivery O2 Flow Rate FiO2 08/12/16 08:00 97.9 98 20 120/58 97 Room Air Physical examination performed by the hospitalist. Height (Feet): 5 Height (Inches): 5.00 Mental Status Exam Muscle Strength/Tone: Normal Dressing: Casual Grooming: Good Attitude: Cooperative Motor Activity: Normal Eye Contact: Good Speech: Normal Volume: Normal Rhythm: Appropriate Rhythm Sensory: Alert Orientation: Disoriented to time, Oriented to person Mood: Neutral Affect: Stable Rate of Thoughts: Appropriate Rate Thought Organization: Organized Associations: Intact Abstract Reasoning: Poor abstract reasoning Thought Content: Normal Perception/Psychotic: Perception Normal Attention Span/Concentration: Short Span Language: Naming Intact Fund of Knowledge: Chelsea aware current events Memory: Other (Believe she does have some recent memory deficits) Suicidal Ideation: Denies Homicidal Ideation: Denies Insight: Limited Judgment: Limited Impulse Control: Fair Laboratory Tests Test 08/12/16 06:14 White Blood Count 4.2T/MM3 Red Blood Count 3.79M/MM3 Hemoglobin 11.8GM/DL Hematocrit 35.9% Mean Corpuscular Volume 94.7UM3 Mean Corpuscular Hemoglobin 31.1UUG Mean Corpuscular Hemoglobin Concent 32.9GM/DL RDW Standard Deviation 43.1FL Platelet Count 146T/MM3 Mean Platelet Volume 9.1UM3 Immature Granulocyte % (Auto) 0.2% Neutrophils (%) (Auto) 58.2% Lymphocytes (%) (Auto) 22.5% Monocytes (%) (Auto) 12.0% Eosinophils (%) (Auto) 6.9% Basophils (%) (Auto) 0.2% Absolute Immature Granulocyte (auto 0.01T/MM3 Absolute Neutrophils (auto) 2.4T/MM3 Absolute Lymphocytes (auto) 0.9T/MM3 Absolute Monocytes (auto) 0.5T/MM3 Absolute Eosinophils (auto) 0.3T/MM3 Absolute Basophils (auto) 0.0T/MM3 Turbidity < 20 Sodium Level 143MEQ/L Potassium Level 4.0MEQ/L Chloride Level 108MEQ/L Carbon Dioxide Level 26MEQ/L Anion Gap 9MEQ/L Blood Urea Nitrogen 21.0MG/DL Creatinine 0.7MG/DL Glomerular Filtration Rate Calc 82 BUN/Creatinine Ratio 30RATIO Glucose Level 96MG/DL Calculated Osmolality 278MOSM/KG Calcium Level 9.2MG/DL Phosphorus Level 4.0MG/DL Magnesium Level 2.0MG/DL Icterus Index < 2 Albumin 3.5G/DL Chemistry Specimen Hemolysis < 15 Assessment and Plan (1) Depression, major, single episode, severe Assessment: with suicidality 08/08/16: Holding Adderall XR since admission. 08/09/16: Decrease lorazepam from 0.25mg PO QID to BID. Decrease Buspar to 7.5mg PO daily with plan to taper/discontinue if possible to avoid polypharmacy. Discontinue Lexapro and switch to Zoloft 100mg PO daily. 08/11/16: Continue current medications; may consider decreasing lorazepam further and discontinuing Buspar if patient tolerates these changes. Will order NIRAV/RIPPA per family's request. 08/12/16: Will discontinue Buspar completely. Continue current medications otherwise; awaiting results of NIRAV/RIPPA. (2) Cognitive disorder Assessment: unspecified (3) Hyperlipemia (4) Hypothyroidism (5) CAD (coronary artery disease) of bypass graft (6) DJD (degenerative joint disease) (7) Hypertension ALMA LAST MD Aug 12, 2016 09:45
--- NOTE | 2016-08-12 15:13 | NUR ---
Behavior Status Patient's arrives on the unit this afternoon; patient is overheard crying loudly and yelling "don't make me stay here!" then hits the wall with her fist. This RN is walking by with another patient; unable to stop at that time and enter room. Patient's daughter and granddaughter arrive about that time and stay out in the [place] for a short time then invite the patient to come to the group room and watch the [employer] game. When entering the room she tells this RN sternly she wants to go home today. She admits she remembers the doctor wanting some "testing" done and hates the idea of having to stay 2 more nights. Daughter directs her to a chair and asks her mom to be patient for one more day. Patient sighs "okay".
[2016-08-12 16:00] VITALS: BP 130/86; PULSE 86; RESP 20; TEMP 97.9; O2SAT 97
--- NOTE | 2016-08-12 18:19 | NUR ---
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 She is polite and cooperative, smiles easily with staff and pleasant. This afternoon when spouse visits she is crying and frustrated (see prev note). When family leaves she stays in the dining room with others; interacts appropriately. She ate 100% of all three meals and has taken medications without argument or incident.
[2016-08-12 20:19] VITALS: BP 136/60; PULSE 82; RESP 18; TEMP 98; O2SAT 92
[2016-08-12] MEDS: PRAVASTATIN 20 MG TABLET PO SCH (20:36)
[2016-08-12] MEDS: SERTRALINE 100 MG TABLET PO SCH (20:36)
[2016-08-12] MEDS: TRAZODONE 50 MG TABLET PO SCH (20:36)
[2016-08-13] MEDS: CEPHALEXIN 500 MG CAPSULE PO SCH ×3 (02:03→17:27)
--- NOTE | 2016-08-13 02:20 | NUR ---
Chart Check 24 hour chart check completed
--- NOTE | 2016-08-13 02:40 | NUR ---
BEDTIME Pt in bed at 2044.
--- NOTE | 2016-08-13 05:30 | NUR ---
Shift Summary Pt A&O, afebrile, vss, RA, ambulated to toilet x1, up with assist x1 and no c/o pain this TOD. Pt slept most of TOD, no behaviors and cooperative. Pt educated on all aspects of plan of care, all questions answered and concerns addressed. All fall precautions in place, call light and personal items within reach. Will continue to monitor. Addendum: 08/13/16 at 0555 by CHRYSTAL HUBER RN Pt c/o nausea this AM, pt states Thuy koenig.
--- NOTE | 2016-08-13 07:30 | NUR ---
Sleep Pt went to bed at 2044 and slept for 6.5 hours. Pt states, "I had the worst night I have ever had here, all the bells were going off and bless that lady across the [place] but she was having a bad night." Pt awake at this time.
[2016-08-13 08:00] VITALS: BP 157/66; PULSE 97; RESP 16; TEMP 99.4; O2SAT 99
[2016-08-13] MEDS: MIRABEGRON 25 MG TABLET PO SCH (08:53)
[2016-08-13] MEDS: ASPIRIN *EC* 325mg TABLET PO SCH (08:54)
[2016-08-13] MEDS: LORAZEPAM 0.5 MG TABLET PO SCH ×2 (08:54→19:57)
[2016-08-13] MEDS: CHOLECALCIFEROL 400 UNIT TABLET PO SCH (08:54)
[2016-08-13] MEDS: FERROUS SULFATE 324 MG TABLET PO SCH (08:54)
[2016-08-13] MEDS: CELECOXIB 100 MG CAPSULE PO SCH ×2 (08:54→19:58)
[2016-08-13 08:55] VITALS: PULSE 97; RESP 16
[2016-08-13] MEDS: CYANOCOBALAMIN (B-12) 500mcg TABLET PO SCH (08:55)
[2016-08-13] MEDS: POTASSIUM CHLORIDE 20 MEQ TABLET PO SCH ×2 (08:55→17:27)
[2016-08-13] MEDS: FLUTICASONE NASAL SPRAY 50 MCG EA NOSTRIL SCH (08:57)
[2016-08-13 10:04] VITALS: TEMP 98.1
--- NOTE | 2016-08-13 11:14 | PNPDOC ---
Subjective Date DATE: 08/13/16 TIME: 11:03 Christopher Dhaliwal was getting ready for the day. She was sitting in front of them are, applying some facial lotion. She reports that she didn't sleep very well last night. She states that she is a little bit weak at the moment because she just returned from the bathroom. She had a bowel movement this morning. She states that her right hip is "not too good"and she wishes she was able to have the hardware removed from it, as planned. She denies any shortness of breath or cough, but she does have rhinorrhea and a little bit of bleeding in her right nare. She states that this is not unusual for her. Objective Vital Signs Vital signs Vital Signs Date Time Temp Pulse Resp B/P Pulse Ox O2 Delivery O2 Flow Rate FiO2 08/13/16 10:04 98.1 08/13/16 08:55 97 16 08/13/16 08:00 157/66 99 Room Air Height (Feet): 5 Height (Inches): 5.00 Weight (Kilograms): 68.000 General General Appearance: Alert, Orientated x 3, Well Nourished, Well Developed, No Acute Distress Eyes (Brief) Eyes: FOUND: PERRL, NOT FOUND: scleral icterus ENMT (Brief) ENMT: FOUND: mucosa moist, NOT FOUND: pharnyx erythema Comments rhinorrhea with minimal epistaxis in right nare Respiratory (Brief) Respiratory: FOUND: clear all mckeon, equal bilaterally Cardiovascular (Brief) Cardiac: FOUND: regular rate, regular rhythm Abdomen (Brief) Abdominal: FOUND: BS normo active x4, soft, NOT FOUND: distended, tender Extremities (Brief) Extremity : Extremity Finding: NOT FOUND: edema Musculoskeletal (Brief) Musculoskeletal: NOT FOUND: deformity Integumentary (Brief) Integumentary: FOUND: dry, pink, warm Psychiatric (Brief) Psychiatric: FOUND: alert, attentive, normal affect, oriented Laboratory Laboratory Laboratory Tests 08/12/16 06:14 Laboratory Tests 08/12/16 06:14 Sepsis Diagnostic Criteria Sepsis Confirmed/Suspected Infection: Yes Assessment & Plan Problems: (1) Depression Status: Acute Qualifiers: Depression Type: unspecified Qualified Codes: F32.9 - Major depressive disorder, single episode, unspecified (2) UTI (urinary tract infection) Status: Acute Qualifiers: Urinary tract infection type: acute cystitis Hematuria presence: with hematuria Qualified Codes: N30.01 - Acute cystitis with hematuria Assessment & Plan: MICROBIOLOGY URINE CULTURE. Final 08/10/16-910 Organism 1 MIXED GRAM POSITIVE ORGANISMS COLONY COUNT 10,000 - 50,000 CFU/ml ORGANISM COMMENT: NO SENSITIVITY PERFORMED (3) Memory loss Status: Chronic (4) CAD (coronary artery disease) (5) Hypothyroidism Status: Chronic (6) CAD (coronary artery disease) of bypass graft Status: Chronic (7) Hyperlipemia Status: Chronic Plan/Intensity of Service We received the stress test report from Dr. Singleton on 08/06/16: This was clinically negative. However, it was nondiagnostic due to failure to achieve target heart rate, but there were no diagnostic ischemic changes noted. 2. The heart rate achieved. Scintigraphically abnormal scan with small fixed inferior defect with some reverse redistribution, low normal left ventricular systolic function - unchanged from stress test on 05/20/15. Minimal epistaxis to right naris, history of allergies. Singulair was discontinued due to adverse psychiatric side effects. Aspirin was reduced to once daily over the weekend. Will add saline nasal gel. If it continues, may need to hold Celebrex. Complete course of Keflex for gram-positive UTI. Slightly Abnormal TSH: Free T3 is still pending. CBC shows mild leukopenia, very mild normocytic anemia. Chemistries are stable. Psychiatric progress notes, reviewed: Awaiting results of NIRAV/RIPPA Code Status Do Not Resuscitate Hospital Course Summary Disclaimer The hospital course summary below is not to be considered part of the above Progress Note. Hospital Course Summary Agree with admission to [facility] under the care of Dr. White for further evaluation and treatment. Will continue with Cipro twice a day for treatment of urinary tract infection In regards to hyperthyroid. Will obtain a free T4 and T3. She has a listed history of hypothyroidism, however, in reviewing home medications. She does not appear to be on any current supplements. The low TSH may be a result from overmedication. Will speak with Orthopedic team to confirm is outpatient hardware surgery is indeed scheduled for this Thursday 08/10. It may need to be rescheduled as patient does require acute inpatient psychiatric care. Recommend continuing MiraLAX and senna plus for bowel motivation. Encourage patient to participate in unit activities and provide a safe environment. The hospitalist services will continue to follow patient for medical management of her existing comorbidities. At time of discharge medical care will return to primary care provider, Elfego Rick 08/09/16 Urine culture shows no growth after 24 hours. At this time, will continue Cipro , and continue to follow urine culture results. Free T3 and T4 are pending. Vitamin B12 and folate are also pending. History of CAD and stroke, blood pressure has been well controlled. Psychiatric evaluation was reviewed. 08/11/16- Chart is reviewed. Her affect remains flat- less S.I. expressed. We need to stop Singulair- side effects of neuropsychosis and suicidal ideations. No wheezing or cough- if pulmonary concerns, optimize inhalers. UTI- Gram positive. Change from Cipro to Keflex for 5 days. Hx of CAD- recent stress test. She is on BID full strength ASA. Decrease to ASA 325mg daily. Repeat labs in AM- she is on BID, need to monitor potassium levels. Will need a hip revision- to be done later when medically stable. Continue supportive care. Again, labs ordered for tomorrow. 08/13/16 We received the stress test report from Dr. Singleton on 08/06/16: This was clinically negative. However, it was nondiagnostic due to failure to achieve target heart rate, but there were no diagnostic ischemic changes noted. 2. The heart rate achieved. Scintigraphically abnormal scan with small fixed inferior defect with some reverse redistribution, low normal left ventricular systolic function - unchanged from stress test on 05/20/15. Minimal epistaxis to right naris, history of allergies. Singulair was discontinued due to adverse psychiatric side effects. Aspirin was reduced to once daily over the weekend. Will add saline nasal gel. If it continues, may need to hold Celebrex. Complete course of Keflex for gram-positive UTI. Slightly Abnormal TSH: Free T3 is still pending. CBC shows mild leukopenia, very mild normocytic anemia. Chemistries are stable. Psychiatric progress notes, reviewed: Awaiting results of NIRAV/FABIENNE EVANS APRN August 13, 2016 11:07
[2016-08-13] MEDS ORDERED: SALINE TOP PRN (11:15)
--- NOTE | 2016-08-13 14:23 | NUR ---
MOBILE UNIT ASSISTANT -- PHONE CONTACT SW received a phone call from daughter, Ade. Ade was just wondering the status of pt. SW explained that pt had been better today but at this point, her treatment goals had not been meet. Ade states that her dad had called her this morning and she had been upset and hung up on him. Ade asked for ways to talk to her mom about appropriateness of leaving and going home. SW suggested continued redirection. SW also suggested that pt would be kept busy. SW educated that the pt needs to feel as though she is needed. SW suggested typing and performing tasks that she used to do in her job so that she could feel as though she was doing something useful.
--- NOTE | 2016-08-13 14:27 | GENPN ---
[facility] Subject[facility] Date DATE: 08/13/16 TIME: 13:42 Subjective/Severity of Illness Medications Current Medications Medications (Trade) Dose Ordered Sig/Tracy Start Time Stop Time Status Last Admin Dose Admin Miscellaneous Medication (May use PRN orders) 1 PRN PRN 08/07/16 17:00 Haloperidol (Haldol) 0.5 mg Q6H PRN 08/07/16 17:00 Lorazepam (Ativan) 0.5 mg Q6H PRN 08/07/16 17:00 Lorazepam (Ativan) 0.5 mg Q6H PRN 08/07/16 17:00 Haloperidol Lactate (Haldol 5 Mg/ml Inj) 0.5 mg Q6H PRN 08/07/16 17:00 Acetaminophen (Tylenol Regular Strength) 650 mg PRN PRN 08/07/16 17:30 Acetaminophen/ Codeine Phosphate (Tylenol #3) 1-2 TABS Q4H PRN 08/07/16 17:30 08/08/16 00:49 2 TAB Albuterol (Ventolin Hfa) 1 puff PRN 08/07/16 17:30 UNV Aspirin (Ecotrin) 325 mg BID 08/07/16 21:00 08/11/16 13:18 DC 08/11/16 08:49 325 MG Benzonatate (TESSALON PERLES 200 mg) 200 mg TID PRN 08/07/16 17:30 Buspirone HCl (Buspar) 15 mg DAILY 08/08/16 09:00 08/09/16 09:28 DC 08/09/16 08:28 15 MG Celecoxib (CeleBREX) 100 mg BID 08/07/16 21:00 08/13/16 08:54 100 MG Cholecalciferol (Vit. D3) 400 unit DAILY 08/08/16 09:00 08/13/16 08:54 400 UNIT Escitalopram Oxalate (LEXAPRO 20mg) 20 mg DAILY 08/08/16 09:00 08/09/16 09:28 DC 08/09/16 08:28 20 MG Ferrous Sulfate (Feosol) 325 mg WB 08/08/16 08:00 08/08/16 08:47 DC Fluticasone Propionate (Flonase) 1 spray DAILY 08/08/16 09:00 08/13/16 08:57 1 SPRAY Lorazepam (Ativan) 0.25 mg QID 08/07/16 21:00 08/09/16 09:28 DC 08/09/16 08:28 0.25 MG Mirabegron (Myrbetriq) 50 mg DAILY 08/08/16 09:00 08/13/16 08:53 50 MG Montelukast Sodium (SINGULAIR 10 mg) 10 mg HS 08/07/16 21:00 08/11/16 13:18 DC 08/10/16 20:17 10 MG Ondansetron HCl (Zofran Odt) 4 mg Q6HR PRN 08/07/16 17:30 Polyethylene Glycol (Miralax) 1/2-1 PACKET DAILY PRN 08/07/16 17:30 Potassium Chloride (Kdur) 40 meq BIDWM 08/08/16 08:00 08/13/16 08:55 40 MEQ Pravastatin Sodium (Pravachol) 20 mg HS 08/07/16 21:00 08/12/16 20:36 20 MG Senna/Docusate Sodium (Senna Plus) 1 tab BID PRN 08/07/16 17:30 Trazodone HCl (Desyrel) 50 mg HS 08/07/16 21:00 08/12/16 20:36 50 MG Non-Formulary Medication 1 DAILY 08/08/16 09:00 Future Hold Cyanocobalamin (Vit. B-12) 500 mcg DAILY 08/08/16 09:00 08/13/16 08:55 500 MCG Albuterol Sulfate (Proventil 2.5 Mg/3 ml) 2.5 mg PRN PRN 08/07/16 18:15 Ciprofloxacin (Cipro) 500 mg BID/E 08/08/16 09:00 08/11/16 13:18 DC 08/11/16 08:46 500 MG Ferrous Sulfate (Feosol) 324 mg WB 08/09/16 08:00 08/13/16 08:54 324 MG Buspirone HCl (Buspar) 7.5 mg DAILY 08/10/16 09:00 08/12/16 14:36 DC 08/12/16 08:34 7.5 MG Lorazepam (Ativan) 0.25 mg BID 08/09/16 21:00 08/13/16 08:54 0.25 MG Sertraline HCl (Zoloft) 100 mg HS 08/10/16 21:00 08/12/16 20:36 100 MG Aspirin (Ecotrin) 325 mg DAILY 08/12/16 09:00 08/13/16 08:54 325 MG Cephalexin HCl (Keflex) 500 mg Q8HR 08/11/16 17:00 08/16/16 16:59 08/13/16 08:57 500 MG Sodium Chloride ([place] Saline Nasal Gel) 1 applic PRN PRN 08/13/16 11:15 Subjective Patient is 76 y/o CF who was admitted for depression and agitation. She was said to be on Adderall and Benzos on admission. She is currently on Sertraline 100mg daily, Trazodone 50mg q hs, Lorazepam 0.25mg BID. Patient is also on Kelfex 500mg TID. Today, patient seen and chart reviewed. Case discussed with treatment team. Patient is pleasant and reports that she feels much better after a bowel movement this morning. She reports not been able to sleep well last night due to some noise on the unit. Patient denies any current SI, HI, AVH or adverse side effects associated with medications. Per staff, patient has not exhibited any problematic behavior or required any psychotropic PRNs in the past 24 hours. Patient slept well overnight. Good appetite. VSS. Time of Service: :45 Start Time: :45 Stop Time: 10:00 Care >50% of this visit spent in counseling/coordination care. [facility] Exam Vitals Vital Signs Date Time Temp Pulse Resp B/P Pulse Ox O2 Delivery O2 Flow Rate FiO2 08/13/16 10:04 98.1 08/13/16 08:55 97 16 08/13/16 08:00 157/66 99 Room Air Physical examination performed by the hospitalist. Height (Feet): 5 Height (Inches): 5.00 Mental Status Exam Muscle Strength/Tone: Weak Dressing: Casual Grooming: Good Attitude: Cooperative Motor Activity: Normal Eye Contact: Good Speech: Normal Rhythm: Appropriate Rhythm Sensory: Alert Orientation: Oriented to person, Oriented to place, Oriented to time Mood: Neutral Affect: Congruent Rate of Thoughts: Appropriate Rate Thought Organization: Organized Associations: Intact Abstract Reasoning: Impaired, concrete Computation: Poor Computation Attention Span/Concentration: Normal Language: Naming Intact Fund of Knowledge: Poor fund of knowledge Memory: Poor-immediate Suicidal Ideation: None Homicidal Ideation: None Insight: Poor Judgment: Poor Impulse Control: Fair Assessment and Plan (1) Depression, major, single episode, severe Assessment: with suicidality 08/08/16: Holding Adderall XR since admission. 08/09/16: Decrease lorazepam from 0.25mg PO QID to BID. Decrease Buspar to 7.5mg PO daily with plan to taper/discontinue if possible to avoid polypharmacy. Discontinue Lexapro and switch to Zoloft 100mg PO daily. 08/11/16: Continue current medications; may consider decreasing lorazepam further and discontinuing Buspar if patient tolerates these changes. Will order ERIN/RIPPA per family's request. 08/12/16: Will discontinue Buspar completely. Continue current medications otherwise; awaiting results of ERIN/RIPPA. 08/13/16:Cont current Medications. Awaiting Erin/Rippa (2) Cognitive disorder Assessment: unspecified (3) Hyperlipemia (4) Hypothyroidism (5) CAD (coronary artery disease) of bypass graft (6) DJD (degenerative joint disease) (7) Hypertension PERLA CRUZ MD August 13, 2016 13:45
--- NOTE | 2016-08-13 15:39 | NUR ---
MARIA ISABEL NICOLAS SPOKE WITH [facility] PT DAUGHTER/DPOA. CM EXPLAINED ROLE AND PROVIDED CONTACT INFORMATION. PT WILL RETURN TO [facility] AT TIME OF D/C FROM [facility] [place]. MARIA ISABEL SPOKE WITH ALANA FROM [facility]. MARIA ISABEL EXPLAINED ROLE AND PROVIDED CONTACT INFORMATION. FACILITY WILL TRANSPORT AND USES PV FOR MENTAL HEALTH FOLLOW UP-THEY COME TO FACILITY. ALANA AWARE TO CONTACT CM IF NEEDS ARISE.
--- NOTE | 2016-08-13 15:46 | STEVAL ---
Eval Subjective and History Date/Time of Eval DATE: 08/13/16 TIME: 14:57 Treatment Order: Assessment Orientations: Person, Place Primary Complaint: depression; memory loss Pain: Yes (Patient reported having neck pain; nursing staff was notified) Date of Onset of Primary Com: Cognitive Evaluation completed 08/13/2016 Patient's Goals: Patient expressed she would like to leave this hospital Significant Past Medical Hx: CAD, HTN, hypothyroidism, hyperlipidemia, depression, memory loss Medical History Form Reviewed: Yes Residence Type: Detention Lives With: Alone Prior Functional Status: Patient was previously living at [facility] in [place] rehabbing from a previous femur fracture Current Functional Status: Patient was brought to [facility] with evaluation of suicidal ideation and depression Education Subject: Opto Mechanical Engineer(s) Educated: Patient Instruction Understanding Demo: Pt. verbalizes understand, Famly/Cargvr verb underst (niece was present for last portion of evaluation ) Education Comment ICE HANDLER educated patient on reasoning for evaluation. Patient was agreeable to evaluation. Niece arrived during last portion of assessment and was agreeable to evaluation. Subjective and History Comment: Upon arrival, patient was in a pleasant mood and was coloring August baskets with nursing staff. At present moment, patient had no c/o pain or fatigue until end of evaluation then nursing staff was notified of c/o pain in neck. Patient agreed to having graduate clinician, David, complete evaluation while being supervised by ALMITA Mora. Cognition Answer yes/no questions: Yes Follow simple commands: Yes Follow complex commands: Yes Understands conversation: Yes Identifies a problem exists: Yes Identifies causes to situation: Yes Solving simple problems: Independently Solving complex problems: Independently Expression Assessment Method: Verbal Expression Abilities: Complex Conversation % Words Intelligible: 100 % Sentence Intelligible: 100 % Conversation Intelligible: 100 Voice Quality: Within Functional Limits Repeats series number: Yes (able to repeat numbers; however, some were expressed out of order ) Repeats series word: Yes Repeats sentence: No (patient did not verbally express entire sentece without error) Oriented to place: Yes Oriented to time: No (patient reported the year was 1916) Oriented to daily events: Yes Oriented to remote events: Yes Recalled personal inform: Yes Recalled visitors: Yes Recalled meal: Yes Recalled general inform: Yes Social Interaction: Interacts fam/staff/visit Immediate Memory Score: 24 Immediate Memory Rate: Severe 31-60th Percent Recent Memory Score: 22 Recent Memory Rate: Severe 31-60th Percent Recent Time Orlando Score: 20 Recent Time Orlando Rate: Severe 31-60th Percent Remote Time Orlando Score: 28 Remote Time Orlando Rate: Moderate 61-90th Percent Spatial Orlando Score: 29 Spatial [place] Severity Rate: WFL >90th Percent Orientation to Enviro Score: 26 Orientation to Enviro Rate: Moderate 61-90th Percent Recall of General Info Score: 20 Recall of General Info Rate: Severe 31-60th Percent Problem Solving/Abstract Score: 21 Problem Solving/Abstract Rate: Severe 31-60th Percent Organization Score: 18 Organization Severity Rating: Severe 31-60th Percent Auditory Processing/Retention: 28 Auditory Processing/Retention: Moderate 61-90th Percent Assessment/Plan of Care Speech Therapy Impressions: Patient was referred for a cognitive evaluation. Clinician utilized the Ross Information Processing Assessment (RIPA) to assess patient's memory, orientation, problem solving, recall of general information, organization, and auditory process skills. During evaluation, patient demonstrated difficulty repeating longer utterances, stating time/year, recalling general information (i.e who was Poonam Frazier), naming/categorizing objects, and identifying meanings of phrases/abstract reasoning. Patient became distracted towards the middle of the evaluation due to distractions in the day room. Patient was transferred via FWW to conference room to complete assessment in a quiet environment. Following are the scores of the RIPA: Immediate Memory Score: 24 Percentile Rank: 54 Severity: Severe Recent Memory Score: 22 Percentile Rank: 60 Severity: Moderate/Severe Temporal Orientation Score: 20 Percentile Rank:48 Severity: Severe Remote Memory Score: 28 Percentile Rank: 78 Severity: Moderate Spatial Orientation Score: 29 Percentile Rank: 92 Severity: Mild/WFL Orientation to Environment Score: 26 Percentile Rank: 73 Severity: Moderate Recall of General Information Score: 20 Percentile Rank: 45 Severity: Severe Problem Solving/Abstract Reasoning Score: 21 Percentile Rank: 57 Severity: Severe Organization Score: 18 Percentile Rank: 38 Severity: Severe Auditory Processing/Retention Score: 28 Percentile Rank: 69 Severity: Moderate ST Treatment Plan: Evaluation Only ST Treatment Plan Frequency: N/A Treatment Plan Duration: N/A Plan of Care Comment Patient was referred for a cognitive evaluation. Patient presents with severe deficits in the following areas: immediate/remote memory, temporal orientation ( recent memory), recall of general information, problem solving/abstract reasoning, and organization. Recommended for patient to have supervision upon discharge. Date of Visit 08/13/16 Time Visit Began: 14:00 Time Visit Ended: 14:40 ST Assess/Plan of Care: ST Treatment Charge: Speech Eval Minutes of Individual Therapy: 40 DAVID RIOJAS August 13, 2016 15:00
[2016-08-13 16:00] VITALS: BP 136/56; PULSE 98; RESP 18; TEMP 98.3; O2SAT 96
--- NOTE | 2016-08-13 18:58 | NUR ---
Summary Pt didn't take a nap today. Pt had multiple visitors. Pt did participate in many different groups and enjoyed making crafts for "". Pt A/O x 2, and able to remember date after told. Pt ambulates to and from room with steady gait and walker. Pt took medications whole without difficulty. Pt did cry 2-3 times today, but able to self regulate after a while of encouragement. Pt did c/o neck pain and first stated, "I didn't want you to know." Pt rated pain 6/10, tylenol given, see eMAR and Pt reports relief after an hour or so. Pt continues to have good appetite: 50 breakfast, 100% for lunch and supper. Pt did state stomach felt better after having BM early this morning. Pt has had no S.I. or H.I. mention and denies plan. Pt has false hope of going home with . Will continue to monitor. Pt uses call light appropriate. No other c/o voiced.
[2016-08-13 19:40] VITALS: BP 143/59; PULSE 88; RESP 18; TEMP 98.9; O2SAT 96
[2016-08-13 19:42] VITALS: BP 101/56; PULSE 90; RESP 16; TEMP 97.6; O2SAT 96
[2016-08-13] MEDS: PRAVASTATIN 20 MG TABLET PO SCH (19:58)
[2016-08-13] MEDS: SERTRALINE 100 MG TABLET PO SCH (19:58)
[2016-08-13] MEDS: TRAZODONE 50 MG TABLET PO SCH (19:58)
--- NOTE | 2016-08-13 23:51 | NUR ---
Status Assumed patient care at 1930 and assessment completed at 194. Patient is up in her room (uses FWW) at time of assessment, busying herself with little tasks (straightening her closet, rearranging items on her bedside table and counter, fixing her bed sheets, etc.). She is RAHEEL to person and place (states the date is August 13, 1915 - reorients easily). Follows commands appropriately. Complains of chronic pain left hip but refuses offered pain medication stating, "It's not that bad." Initiates conversation and makes appropriate eye contact. Affect is bright; smiles often and no negative comments are noted. Denies SI/HI, anxiety, or troubling thoughts. Reports nausea this a.m. but denies any this evening; prune juice given as per her request. VS are stable. Readily compliant with medications. No tearfulness or emotional lability is noted this evening. Activities offered in dayroom/dining room but she states that she is tired after not sleeping well the previous night; requests HS medications early (takes them readily when offered) so that she can retire for the night.
--- NOTE | 2016-08-14 00:13 | NUR ---
Bedtime Patient was in bed by 1999 and reads/looks at magazines quietly for a time. She is asleep by 2129 and was awake all of day shift. Bed alarm is on and side rails are up x2.
[2016-08-14] MEDS: CEPHALEXIN 500 MG CAPSULE PO SCH ×3 (01:58→17:31)
--- NOTE | 2016-08-14 02:34 | NUR ---
Chart Check 24 hour chart check completed
--- NOTE | 2016-08-14 06:09 | NUR ---
Summary Patient was ALOx2 this shift. In a pleasant and cooperative mood; affect is cheerful and she engages easily with staff. Denies SI/HI or any feelings of anxiety. Although patient busies herself about her room last evening, she does not appear to be restless, anxious, or exit-seeking. No tearfulness or emotional lability is noted. She is readily compliant with medications and is able to use call crespo overnight to notify staff of needs. Up x1 overnight to toilet; states that she has been sleeping well and appears to fall back to sleep easily. Resting quietly at the current time. Bed alarm is on and side rails are up x2.
[2016-08-14] MEDS: FERROUS SULFATE 324 MG TABLET PO SCH (07:59)
[2016-08-14 08:00] VITALS: PULSE 89; RESP 16
[2016-08-14] MEDS: POTASSIUM CHLORIDE 20 MEQ TABLET PO SCH ×2 (08:00→17:32)
[2016-08-14] MEDS: ASPIRIN *EC* 325mg TABLET PO SCH (08:00)
[2016-08-14] MEDS: CELECOXIB 100 MG CAPSULE PO SCH ×2 (08:00→19:43)
[2016-08-14] MEDS: CHOLECALCIFEROL 400 UNIT TABLET PO SCH (08:02)
[2016-08-14] MEDS: MIRABEGRON 25 MG TABLET PO SCH (08:02)
[2016-08-14] MEDS: CYANOCOBALAMIN (B-12) 500mcg TABLET PO SCH (08:03)
[2016-08-14] MEDS: LORAZEPAM 0.5 MG TABLET PO SCH ×2 (08:03→19:44)
[2016-08-14] MEDS: FLUTICASONE NASAL SPRAY 50 MCG EA NOSTRIL SCH (08:05)
[2016-08-14 08:09] VITALS: BP 125/63; PULSE 89; RESP 16; TEMP 97.7; O2SAT 98
[2016-08-14 11:03] LABS: T3 FREE - BATCH 4.03 PG/ML (2.77-5.27)
--- NOTE | 2016-08-14 13:13 | NUR ---
wake up note patient woke up at 0745 this morning.
[2016-08-14 16:14] VITALS: BP 122/55; PULSE 90; RESP 16; TEMP 98.7; O2SAT 95
--- NOTE | 2016-08-14 17:22 | NUR ---
SHIFT SUMMARY Patient is AO x 3, speech is clear and appropriate, patient is able to verbalize needs, she is continent, woke up at 0745 this morning. Patient was cooperative with cares, compliant with medications, no hallucinations noted, no aggressive behaviors noted, patient comes and goes to her room several times a day, she spends time in the day room and participated in activities this shift. Patient had family visit her today. This RN spoke to her daughter vern about possible discharge on to custodial, Per Dr. Frye orders, family agree, she was concern about patient not being happy about going back to custodial and requested if we can talk to patient about it. This RN spoke to patient and patient states " Ok but after I get therapy I'm going back home, david will be home all the time, I don't like the custodial, you would not like it either if you were there." Patient call her and got tearful, minutes later she was better and more calm. Patient is currently eating dinner she denies pain and states she only has pain when she walks. Pain medication was offered and patient refused. Patient denies needs or concerns at the moment Addendum: 08/14/16 at 1923 by CHRISTOPHER AGUILLON RN FAMILY WAS HERE VISITING THIS EVENING, PATIENT WAS UPSET AND EMOTIONAL WITH THEM, SHE WAS CRYING, FAMILY REPORTED TO THIS RN THAT PATIENT MADE A COMMENT SAYING "I JUST WANT TO " FAMILY VERN CHET SAYS PATIENT DOES NOT LOOK ANY BETTER THAN WHEN SHE WAS ADMITTED, SHE SAID PATIENT CONTINUES TO MAKE SI COMMENTS, FAMILY ALSO SAID THAT PATIENT BLAMES THEM FOR EVERYTHING AND IS UPSET ABOUT GOING BACK TO THE HALFWAY INSTEAD OF HOME. FAMILY SAID THEY WILL NOT COME VISIT TOMORROW SINCE IT MAKES HER UPSET AND EMOTIONAL WHEN THEY DO.
--- NOTE | 2016-08-14 17:57 | GENPN ---
Generations Subjective Date DATE: 08/14/16 TIME: 17:47 Subjective/Severity of Illness Medications Current Medications Medications (Trade) Dose Ordered Sig/Tracy Start Time Stop Time Status Last Admin Dose Admin Miscellaneous Medication (May use PRN orders) 1 PRN PRN 08/07/16 17:00 Haloperidol (Haldol) 0.5 mg Q6H PRN 08/07/16 17:00 Lorazepam (Ativan) 0.5 mg Q6H PRN 08/07/16 17:00 Lorazepam (Ativan) 0.5 mg Q6H PRN 08/07/16 17:00 Haloperidol Lactate (Haldol 5 Mg/ml Inj) 0.5 mg Q6H PRN 08/07/16 17:00 Acetaminophen (Tylenol Regular Strength) 650 mg PRN PRN 08/07/16 17:30 08/13/16 14:48 650 MG Acetaminophen/ Codeine Phosphate (Tylenol #3) 1-2 TABS Q4H PRN 08/07/16 17:30 08/08/16 00:49 2 TAB Albuterol (Ventolin Hfa) 1 puff PRN 08/07/16 17:30 UNV Aspirin (Ecotrin) 325 mg BID 08/07/16 21:00 08/11/16 13:18 DC 08/11/16 08:49 325 MG Benzonatate (TESSALON PERLES 200 mg) 200 mg TID PRN 08/07/16 17:30 Buspirone HCl (Buspar) 15 mg DAILY 08/08/16 09:00 08/09/16 09:28 DC 08/09/16 08:28 15 MG Celecoxib (CeleBREX) 100 mg BID 08/07/16 21:00 08/14/16 08:00 100 MG Cholecalciferol (Vit. D3) 400 unit DAILY 08/08/16 09:00 08/14/16 08:02 400 UNIT Escitalopram Oxalate (LEXAPRO 20mg) 20 mg DAILY 08/08/16 09:00 08/09/16 09:28 DC 08/09/16 08:28 20 MG Ferrous Sulfate (Feosol) 325 mg WB 08/08/16 08:00 08/08/16 08:47 DC Fluticasone Propionate (Flonase) 1 spray DAILY 08/08/16 09:00 08/14/16 08:05 1 SPRAY Lorazepam (Ativan) 0.25 mg QID 08/07/16 21:00 08/09/16 09:28 DC 08/09/16 08:28 0.25 MG Mirabegron (Myrbetriq) 50 mg DAILY 08/08/16 09:00 08/14/16 08:02 50 MG Montelukast Sodium (SINGULAIR 10 mg) 10 mg HS 08/07/16 21:00 08/11/16 13:18 DC 08/10/16 20:17 10 MG Ondansetron HCl (Zofran Odt) 4 mg Q6HR PRN 08/07/16 17:30 Polyethylene Glycol (Miralax) 1/2-1 PACKET DAILY PRN 08/07/16 17:30 Potassium Chloride (Kdur) 40 meq BIDWM 08/08/16 08:00 08/14/16 17:32 40 MEQ Pravastatin Sodium (Pravachol) 20 mg HS 08/07/16 21:00 08/13/16 19:58 20 MG Senna/Docusate Sodium (Senna Plus) 1 tab BID PRN 08/07/16 17:30 Trazodone HCl (Desyrel) 50 mg HS 08/07/16 21:00 08/13/16 19:58 50 MG Non-Formulary Medication 1 DAILY 08/08/16 09:00 Future Hold Cyanocobalamin (Vit. B-12) 500 mcg DAILY 08/08/16 09:00 08/14/16 08:03 500 MCG Albuterol Sulfate (Proventil 2.5 Mg/3 ml) 2.5 mg PRN PRN 08/07/16 18:15 Ciprofloxacin (Cipro) 500 mg BID/E 08/08/16 09:00 08/11/16 13:18 DC 08/11/16 08:46 500 MG Ferrous Sulfate (Feosol) 324 mg WB 08/09/16 08:00 08/14/16 07:59 324 MG Buspirone HCl (Buspar) 7.5 mg DAILY 08/10/16 09:00 08/12/16 14:36 DC 08/12/16 08:34 7.5 MG Lorazepam (Ativan) 0.25 mg BID 08/09/16 21:00 08/14/16 08:03 0.25 MG Sertraline HCl (Zoloft) 100 mg HS 08/10/16 21:00 08/13/16 19:58 100 MG Aspirin (Ecotrin) 325 mg DAILY 08/12/16 09:00 08/14/16 08:00 325 MG Cephalexin HCl (Keflex) 500 mg Q8HR 08/11/16 17:00 08/16/16 16:59 08/14/16 17:31 500 MG Sodium Chloride ([place] Saline Nasal Gel) 1 applic PRN PRN 08/13/16 11:15 Subjective Patient is 76 y/o CF who was admitted for depression and agitation. She was said to be on Adderall and Benzos on admission. She is currently on Sertraline 100mg daily, Trazodone 50mg q hs, Lorazepam 0.25mg BID. Patient is also on Kelfex 500mg TID. Today, patient seen, chart reviewed and vitals noted to be stable. Case discussed with treatment team. Patient was seen while playing cards in the dinning room and reports that she is doing well. She perseverates about going back to her and wanted to know if she had "dementia". Her appetite has been good and so is her sleep. She denies any side effects from her medications and she denies any suicide or homicide ideations. The plan will be to observe patient's mood in the next day or 2 and will discharge . Per staff, patient has not exhibited any problematic behavior or required any psychotropic PRNs in the past 24 hours. Patient slept well overnight( about 8 hours). Good appetite. Time of Service: 13:45 Start Time: 13:45 Stop Time: 14:00 Care >50% of this visit spent in counseling/coordination care. Generations Exam Vitals Vital Signs Date Time Temp Pulse Resp B/P Pulse Ox O2 Delivery O2 Flow Rate FiO2 08/14/16 16:14 98.7 90 16 122/55 95 Room Air Physical examination performed by the hospitalist. Height (Feet): 5 Height (Inches): 5.00 Mental Status Exam Muscle Strength/Tone: Weak (she ambulates with gait with the aide of a walker) Dressing: Casual Grooming: Good Attitude: Cooperative Motor Activity: Normal Eye Contact: Fair Speech: Normal Volume: Normal Rhythm: Appropriate Rhythm Sensory: Alert Orientation: Oriented to person, Oriented to place Mood: Depressed Affect: Restricted Rate of Thoughts: Appropriate Rate Thought Organization: Organized Associations: Intact Abstract Reasoning: Impaired, concrete Computation: Poor Computation Thought Content: Normal Attention Span/Concentration: Short Span Language: Naming Impaired Fund of Knowledge: Poor fund of knowledge Memory: Poor-immediate Suicidal Ideation: None Homicidal Ideation: None Insight: Poor Judgment: Fair Impulse Control: Fair Assessment and Plan (1) Depression, major, single episode, severe Assessment: with suicidality 08/08/16: Holding Adderall XR since admission. 08/09/16: Decrease lorazepam from 0.25mg PO QID to BID. Decrease Buspar to 7.5mg PO daily with plan to taper/discontinue if possible to avoid polypharmacy. Discontinue Lexapro and switch to Zoloft 100mg PO daily. 08/11/16: Continue current medications; may consider decreasing lorazepam further and discontinuing Buspar if patient tolerates these changes. Will order ERIN/RIPPA per family's request. 08/12/16: Will discontinue Buspar completely. Continue current medications otherwise; awaiting results of ERIN/RIPPA. 08/13/16:Cont current Medications. Awaiting Erin/Rippa 08/14/16: Cont current treatment. Possible discharge on . SW to arrange follow up with outpatient psychiatrist. (2) Cognitive disorder Assessment: unspecified (3) Hyperlipemia (4) Hypothyroidism (5) CAD (coronary artery disease) of bypass graft (6) DJD (degenerative joint disease) (7) Hypertension PERLA CRUZ MD August 14, 2016 17:53
[2016-08-14] MEDS: SERTRALINE 100 MG TABLET PO SCH (19:44)
[2016-08-14] MEDS: PRAVASTATIN 20 MG TABLET PO SCH (19:44)
[2016-08-14] MEDS: TRAZODONE 50 MG TABLET PO SCH (19:44)
[2016-08-14 20:06] VITALS: BP 114/74; PULSE 78; RESP 17; TEMP 97.7; O2SAT 96
[2016-08-14 21:31] VITALS: PULSE 78; RESP 17
--- NOTE | 2016-08-15 01:21 | NUR ---
Chart Check 24 hour chart check completed
--- NOTE | 2016-08-15 01:21 | NUR ---
Bed time Pt went to bed at 2044 and was asleep at 2114. No sleep during day hours. Currently sleeping. Will continue to monitor
[2016-08-15] MEDS: CEPHALEXIN 500 MG CAPSULE PO SCH ×3 (01:26→17:16)
--- NOTE | 2016-08-15 01:42 | NUR ---
Mid shift status Pt was in her room at beginning of shift. Pt received a shower this shift. After her shower, BARREL RIBS SOLDERER reported to this nurse that the pt was crying throughout the duration of her shower, saying she did not want to go back to [facility]. Once pt was in bed, this nurse entered room to complete the assessment. Alert x 3. Pt was pleasant and cooperative with assessment. Pt denies pain, but stated her left hip is always hurting her though. Pt began to get tearful, stating she has not had a good day. She stated she is upset because she has to wait until to be discharged, and went on to say she is mostly upset that she is being sent back to the facility she came from. She then began sobbing, saying she does not understand why she has to go back there. Pt stated she hates the facility. Continued to visit with pt for a while. She eventually calmed, stating she just wanted to read in bed for a while. Pt makes needs known, using call light appropriately. Compliant with all meds. Continent and incontinent. Currently sleeping. Bed rails up x 2 and alarm on. Will continue to monitor Addendum: 08/15/16 at 0224 by JEFERSON MAHMOOD RN Pt has denied SI this shift, or any thoughts of harming others.
--- NOTE | 2016-08-15 05:15 | NUR ---
Summary Pt has been sleeping since 2114, getting up to use BR and to take 0100 medication. Pt alert x 3. Up ad serena in room. Up SBA to FWW. Pt has been compliant with all meds. Pt has not exhibited any further tearfulness or sobbing since last note. Pleasant and cooperative with cares. Denies SI or thoughts of harm to someone else. No PRNs given. Currently sleeping. Bed rails up x 2 and alarm on. Will continue to monitor
--- NOTE | 2016-08-15 07:45 | NUR ---
Patient slept 9 hours last night
[2016-08-15 08:01] VITALS: BP 113/65; PULSE 94; RESP 16; TEMP 97.6; O2SAT 94
[2016-08-15] MEDS: ASPIRIN *EC* 325mg TABLET PO SCH (08:13)
[2016-08-15] MEDS: POTASSIUM CHLORIDE 20 MEQ TABLET PO SCH ×2 (08:13→17:17)
[2016-08-15] MEDS: CYANOCOBALAMIN (B-12) 500mcg TABLET PO SCH (08:13)
[2016-08-15] MEDS: CELECOXIB 100 MG CAPSULE PO SCH ×2 (08:13→19:38)
[2016-08-15] MEDS: MIRABEGRON 25 MG TABLET PO SCH (08:14)
[2016-08-15] MEDS: FERROUS SULFATE 324 MG TABLET PO SCH (08:14)
[2016-08-15] MEDS: LORAZEPAM 0.5 MG TABLET PO SCH ×2 (08:14→19:38)
[2016-08-15] MEDS: CHOLECALCIFEROL 400 UNIT TABLET PO SCH (08:14)
[2016-08-15] MEDS: FLUTICASONE NASAL SPRAY 50 MCG EA NOSTRIL SCH (08:16)
--- NOTE | 2016-08-15 09:40 | NUR ---
MILK OF LIME SLAKER--INDIVIDUAL LSCSW met 1:1 with pt. to discuss potential discharge plans. Pt. was sitting in recliner in day room. She is alert and Ox2-3. She continues to have depressed affect as she talks about discharge plans. She knows she has to go back to [facility], though she does not understand why. She continues to think she is capable of living at home with her . She mentions that he is almost worse off than her physically. She is able to identify several positive aspects about living at [facility]. She is also able to identify some things that she is glad she no longer is responsible for (cooking, laundry, etc.).
--- NOTE | 2016-08-15 11:04 | NUR ---
SAND PLANT ATTENDANT--FAMILY CONTACT [facility] received phone call from pt's daughter, Ade. She reports that last night when she and the patient's came to visit, pt. was right back to the same way she was before she came in to the unit. She was tearful and venting her anger and frustration at the family. She made statements that she just wanted to and might as well kill herself. This SW commented that while meeting with pt. this morning, pt. had expressed feeling resigned to the fact that she was going back to [facility] but she was still not happy with her doctor. Pt. had been able to identify to this SW the positive things she enjoys about living at [facility]. She does admit that she has memory problems. Daughter was encouraged to validate pt's feelings and acknowledge how hard this must be for her mother rather than trying to justify or argue with her mother about the reasons why she has to live at [facility]. Daughter thanked SW for the suggestions. She is going to suggest that her brother call and talk with SW because he is having a very difficult time.
--- NOTE | 2016-08-15 11:52 | NUR ---
RIDE OPERATOR--FAMILY CONTACT [facility] received phone call from pt's son, Truong Olson. He wanted to know the results of the cognitive tests done and those results were shared. He was reassured that she does need the level of care she is receiving at [facility]. He said he and his sister were concerned about toll it would take on his father if pt. were to return home. He and his sister do not think pt. would be happy there either. He asked that staff talk with pt. about her dx. of dementia and her need for care before she leaves. This SW has already talked with pt. about the results of the testing and will try and talk with her again before she leaves. He thought it might be good idea for her to have copies of the test results.
--- NOTE | 2016-08-15 13:01 | GENPN ---
[facility] Subjective Date DATE: 08/15/16 TIME: 12:53 Subjective/Severity of Illness Medications Current Medications Medications (Trade) Dose Ordered Sig/Tracy Start Time Stop Time Status Last Admin Dose Admin Miscellaneous Medication (May use PRN orders) 1 PRN PRN 08/07/16 17:00 Haloperidol (Haldol) 0.5 mg Q6H PRN 08/07/16 17:00 Lorazepam (Ativan) 0.5 mg Q6H PRN 08/07/16 17:00 Lorazepam (Ativan) 0.5 mg Q6H PRN 08/07/16 17:00 Haloperidol Lactate (Haldol 5 Mg/ml Inj) 0.5 mg Q6H PRN 08/07/16 17:00 Acetaminophen (Tylenol Regular Strength) 650 mg PRN PRN 08/07/16 17:30 08/13/16 14:48 650 MG Acetaminophen/ Codeine Phosphate (Tylenol #3) 1-2 TABS Q4H PRN 08/07/16 17:30 08/08/16 00:49 2 TAB Albuterol (Ventolin Hfa) 1 puff PRN 08/07/16 17:30 UNV Aspirin (Ecotrin) 325 mg BID 08/07/16 21:00 08/11/16 13:18 DC 08/11/16 08:49 325 MG Benzonatate (TESSALON PERLES 200 mg) 200 mg TID PRN 08/07/16 17:30 Buspirone HCl (Buspar) 15 mg DAILY 08/08/16 09:00 08/09/16 09:28 DC 08/09/16 08:28 15 MG Celecoxib (CeleBREX) 100 mg BID 08/07/16 21:00 08/15/16 08:13 100 MG Cholecalciferol (Vit. D3) 400 unit DAILY 08/08/16 09:00 08/15/16 08:14 400 UNIT Escitalopram Oxalate (LEXAPRO 20mg) 20 mg DAILY 08/08/16 09:00 08/09/16 09:28 DC 08/09/16 08:28 20 MG Ferrous Sulfate (Feosol) 325 mg WB 08/08/16 08:00 08/08/16 08:47 DC Fluticasone Propionate (Flonase) 1 spray DAILY 08/08/16 09:00 08/15/16 08:16 1 SPRAY Lorazepam (Ativan) 0.25 mg QID 08/07/16 21:00 08/09/16 09:28 DC 08/09/16 08:28 0.25 MG Mirabegron (Myrbetriq) 50 mg DAILY 08/08/16 09:00 08/15/16 08:14 50 MG Montelukast Sodium (SINGULAIR 10 mg) 10 mg HS 08/07/16 21:00 08/11/16 13:18 DC 08/10/16 20:17 10 MG Ondansetron HCl (Zofran Odt) 4 mg Q6HR PRN 08/07/16 17:30 Polyethylene Glycol (Miralax) 1/2-1 PACKET DAILY PRN 08/07/16 17:30 Potassium Chloride (Kdur) 40 meq BIDWM 08/08/16 08:00 08/15/16 08:13 40 MEQ Pravastatin Sodium (Pravachol) 20 mg HS 08/07/16 21:00 08/14/16 19:44 20 MG Senna/Docusate Sodium (Senna Plus) 1 tab BID PRN 08/07/16 17:30 Trazodone HCl (Desyrel) 50 mg HS 08/07/16 21:00 08/14/16 19:44 50 MG Non-Formulary Medication 1 DAILY 08/08/16 09:00 Future Hold Cyanocobalamin (Vit. B-12) 500 mcg DAILY 08/08/16 09:00 08/15/16 08:13 500 MCG Albuterol Sulfate (Proventil 2.5 Mg/3 ml) 2.5 mg PRN PRN 08/07/16 18:15 Ciprofloxacin (Cipro) 500 mg BID/E 08/08/16 09:00 08/11/16 13:18 DC 08/11/16 08:46 500 MG Ferrous Sulfate (Feosol) 324 mg WB 08/09/16 08:00 08/15/16 08:14 324 MG Buspirone HCl (Buspar) 7.5 mg DAILY 08/10/16 09:00 08/12/16 14:36 DC 08/12/16 08:34 7.5 MG Lorazepam (Ativan) 0.25 mg BID 08/09/16 21:00 08/15/16 08:14 0.25 MG Sertraline HCl (Zoloft) 100 mg HS 08/10/16 21:00 08/14/16 19:44 100 MG Aspirin (Ecotrin) 325 mg DAILY 08/12/16 09:00 08/15/16 08:13 325 MG Cephalexin HCl (Keflex) 500 mg Q8HR 08/11/16 17:00 08/16/16 16:59 08/15/16 08:16 500 MG Sodium Chloride ([place] Saline Nasal Gel) 1 applic PRN PRN 08/13/16 11:15 Subjective Patient is 76 y/o CF who was admitted for depression and agitation. She was said to be on Adderall and Benzos on admission. She is currently on Sertraline 100mg daily, Trazodone 50mg q hs, Lorazepam 0.25mg BID. Patient is also on Kelfex 500mg TID. Today, patient seen, chart reviewed and vitals noted to be stable. Case discussed with treatment team. Patient was seen and reports that she is anxious to be discharged back to the facility. Patient wanted to know, if she had "dementia" and psychoeducation was provided to her about the diagnosis of cognitive disorder and she was informed that for her safety, she will require a facility where she will be provided with 24-hour supervision. Patient expressed interest in going back to her , but understood the reason why she needs to be in a facility. She denies any side effects from her medications and she denies any suicide or homicide ideations. The plan will be discharge . Per staff, patient has not exhibited any problematic behavior or required any psychotropic PRNs in the past 24 hours. Patient slept well overnight( about 9 hours). Good appetite. Time of Service: :45 Start Time: :45 Stop Time: 10:00 Care >50% of this visit spent in counseling/coordination care. [facility] Exam Vitals Vital Signs Date Time Temp Pulse Resp B/P Pulse Ox O2 Delivery O2 Flow Rate FiO2 08/15/16 08:01 97.6 94 16 113/65 94 Room Air Physical examination performed by the hospitalist. Height (Feet): 5 Height (Inches): 5.00 Mental Status Exam Muscle Strength/Tone: Weak (ambulates with a walker) Dressing: Neat Grooming: Good Attitude: Cooperative Motor Activity: Normal Eye Contact: Good Speech: Normal Volume: Normal Rhythm: Appropriate Rhythm Sensory: Alert Mood: Neutral Affect: Congruent Rate of Thoughts: Appropriate Rate Thought Organization: Organized Associations: Intact Abstract Reasoning: Impaired, concrete Computation: Poor Computation Thought Content: Normal Perception/Psychotic: Hx psychosis,not current Attention Span/Concentration: Normal Language: Naming Intact Fund of Knowledge: Poor fund of knowledge Memory: Poor-immediate Suicidal Ideation: None Homicidal Ideation: None Insight: Fair Judgment: Fair Impulse Control: Fair Assessment and Plan (1) Depression, major, single episode, severe Assessment: with suicidality 08/08/16: Holding Adderall XR since admission. 08/09/16: Decrease lorazepam from 0.25mg PO QID to BID. Decrease Buspar to 7.5mg PO daily with plan to taper/discontinue if possible to avoid polypharmacy. Discontinue Lexapro and switch to Zoloft 100mg PO daily. 08/11/16: Continue current medications; may consider decreasing lorazepam further and discontinuing Buspar if patient tolerates these changes. Will order ERIN/RIPPA per family's request. 08/12/16: Will discontinue Buspar completely. Continue current medications otherwise; awaiting results of ERIN/RIPPA. 08/13/16:Cont current Medications. Awaiting Erin/Rippa 08/14/16: Cont current treatment. Possible discharge on . SW to arrange follow up with outpatient psychiatrist. 08/15/16: Patient to discharge on 08/16/16. RN to call and ascertain that family is okay with the plan. (2) Cognitive disorder Assessment: unspecified (3) Hyperlipemia (4) Hypothyroidism (5) CAD (coronary artery disease) of bypass graft (6) DJD (degenerative joint disease) (7) Hypertension PERLA CRUZ MD August 15, 2016 12:58
--- NOTE | 2016-08-15 13:29 | NUR ---
Status Patient is awake and performing own ADLs at 0745 this morning, ambulates to dining room per FWW. She consumes 100% of breakfast and stays in the day room participating in activities with AF. She has not been tearful this morning, smilies easily but is somewhat more guarded then when this RN was with her two days ago; she engages in group/activities/conversation but two days ago initiated these activities more. She ate 100% of lunch independently and has taken all medications without argument or incident. 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
--- NOTE | 2016-08-15 14:24 | NUR ---
MARIA ISABEL CRUZ IS ANTICIPATING D/C FOR TOMORROW. MARIA ISABEL SPOKE WITH ALANA FROM [facility] AND THEY WILL TRANSPORT PT TOMORROW AT 9:00AM. MARIA ISABEL SPOKE WITH VERN PT DAUGHTER AND SHE IS AWARE OF STOCK CHECKER TIME. VERN AWARE TO CONTACT MARIA ISABEL IF NEEDS ARISE.
[2016-08-15 16:07] VITALS: BP 141/61; PULSE 84; RESP 14; TEMP 97.9; O2SAT 97
--- NOTE | 2016-08-15 17:55 | NUR ---
SHIFT SUMMARY patient care was take over at 1530, patient has been AO x 3, patient did not complain of pain, she denies having any negative thoughts or SI, No SI comments were heard, patient has been compliant with medications, no hallucinations noted, no delusions noted, patient comes out to the dining room for meals no inappropriate behaviors noted, NO PRN medications given , she is able to verbalize needs, she is steady and pleasant, uses her walker appropriately. Patient is aware she will be going home tomorrow and want to start packing, this RN explain to patient that it would be better to pack tomorrow just in case she needs something from her belongings. Patient denies needs or concerns at the moment.
[2016-08-15] MEDS: TRAZODONE 50 MG TABLET PO SCH (19:39)
[2016-08-15] MEDS: SERTRALINE 100 MG TABLET PO SCH (19:39)
[2016-08-15] MEDS: PRAVASTATIN 20 MG TABLET PO SCH (19:39)
[2016-08-15 20:57] VITALS: BP 124/91; PULSE 88; RESP 15; TEMP 98.1; O2SAT 95
[2016-08-15] MEDS ORDERED: CEPH500C2 PO (20:58)
[2016-08-15] MEDS ORDERED: SERT100T12 PO (20:58)
--- NOTE | 2016-08-15 21:02 | PDOCECFAO ---
Admission Orders Admission Orders Admit to: [facility] Allergies: Coded Allergies: Penicillins (Verified Allergy, Unknown, HIVES, 05/30/15) Admitting Diagnosis Major Depressive Dis,Unspec Major Neurocog Dis W B Admitting Physician Jeri White MD Code Status Do Not Resuscitate Anticipated LOS: Greater than 30 days Rehab Potential: Fair Diet: Regular Wound/Incision Care: NA Not Applicable PERLA CRUZ MD August 15, 2016 21:02
[2016-08-15 21:18] VITALS: RESP 16
[2016-08-16] MEDS: CEPHALEXIN 500 MG CAPSULE PO SCH ×2 (00:23→08:13)
--- NOTE | 2016-08-16 00:39 | NUR ---
Chart Check 24 hour chart check completed
--- NOTE | 2016-08-16 00:40 | NUR ---
Bed time Pt went to bed and was reading for a bit at 1999. Asleep at 2114. Up once to void. No sleep noted on day hours. Currently sleeping. Will continue to monitor
--- NOTE | 2016-08-16 00:41 | NUR ---
Mid shift status Pt was in her room getting ready for bed at beginning of shift. Pt is pleasant and cooperative with assessment and cares. Alert x 3. Up ad serena with FWW in room with BRP. Pt compliant with HS meds. Pt has been smiling and happy. No displays of tearfulness or crying this shift. Pt made request to not wake her to give her her 0100 antibiotic if she is sleeping. She stated she could not get back to sleep the previous night when that happened. Pt happened to be up to void at 0030 so her antibiotic was given at that time. Pt went to bed at 1999 and stayed up reading newspaper for a bit. Fell asleep at 2114. Up once to use BR. Pt denies SI or thoughts to harm others. No agitation or behaviors noted. No PRNs given. Currently sleeping. Bed rails up x 2 and alarm on. Will continue to monitor
--- NOTE | 2016-08-16 05:35 | NUR ---
Summary Pt has been sleeping since 2114, up once to use BR. Pleasant and cooperative. Alert x 3. Up ad serena in room with FWW. Compliant with all meds. Pt denies SI or thoughts of harm to others. No agitation or behaviors this shift. No PRNs given. Nothing new to note since previous status note. Currently sleeping. Bed rails up x 2 and alarm on. Will continue to monitor
[2016-08-16] MEDS: POTASSIUM CHLORIDE 20 MEQ TABLET PO SCH (08:12)
[2016-08-16] MEDS: CELECOXIB 100 MG CAPSULE PO SCH (08:12)
[2016-08-16] MEDS: ASPIRIN *EC* 325mg TABLET PO SCH (08:12)
[2016-08-16] MEDS: CHOLECALCIFEROL 400 UNIT TABLET PO SCH (08:13)
[2016-08-16] MEDS: LORAZEPAM 0.5 MG TABLET PO SCH (08:13)
[2016-08-16] MEDS: MIRABEGRON 25 MG TABLET PO SCH (08:13)
[2016-08-16] MEDS: CYANOCOBALAMIN (B-12) 500mcg TABLET PO SCH (08:13)
[2016-08-16] MEDS: FERROUS SULFATE 324 MG TABLET PO SCH (08:13)
[2016-08-16] MEDS: FLUTICASONE NASAL SPRAY 50 MCG EA NOSTRIL SCH (08:14)
[2016-08-16] MEDS ORDERED: CYAN10009 PO (08:18)
[2016-08-16 08:43] VITALS: BP 119/63; PULSE 86; RESP 18; TEMP 98.4; O2SAT 98
[2016-08-16] MEDS ORDERED: LORA0.5T86 PO (09:06)
--- NOTE | 2016-08-16 09:32 | NUR ---
DISCHARGE NOTE PATIENT WAS DISCHARGE TODAY TO [facility] TODAY AT 0910, STAFF FROM [facility] WAS HERE TO PICK HER UP, FAMILY WAS NOT PRESENT DURING DISCHARGE, PATIENT WAS IN A GOOD AND STABLE CONDITION, SHE ATE BREAKFAST AND TOOK ALL HER MORNING MEDICATIONS BEFORE DISCHARGE, PATIENT BELONGINGS WERE SEND ALONG WITH HER, DISCHARGE PACKAGE WAS GIVEN TO [facility] STAFF MEMBERS, PATIENT WAS ESCORTED TO ED ENTRANCE VIA WHEELCHAIR BY [facility] STAFF. NASAL SPRAY WAS NOT SEND WITH BELONGINS BUT IT WAS GIVEN TO PATIENT GRANDDAUGHTER AMANDA VILLALPANDO. Report called to "___JUAN FRANCISCO TREVINO AT 09 "; unit contact information given along with plans for follow-up care with PCP and MH professional as outlined in PHS. No pending labs on discharge
--- NOTE | 2016-08-16 13:57 | DSPDOC ---
General Date Date DATE: 08/16/16 TIME: 13:42 Attending Physician Jeri White MD Admitting Physician Jeri White MD Consulting Physician Lizeth Huggins MD Admitting Diagnosis Major Depressive Disorder Recurrent Severe with mixed features, Discharge Diagnosis 1.Major Depressive disorder Recurrent with psychotic features 2. Unspecified Cognitive disorder History of Present Illness HPI by Dr. White: Patient is a 76-year-old , retired female who was admitted to [facility] on 08/07/16 from [facility] in [place], [place]. On interview, patient is pleasant and cooperative with me, though she is very angry and sad about being in a LTC facility. She states she is here because she and her got in an argument and they both said that they would shoot themselves if they had a gun, and she believes a nurse was listening. Patient denies any thoughts/plan/intent about wanting to but does state that she is miserable living in her LTC facility. She is very unhappy with the physician there "because she told me I had dementia and I would be there forever." She does say she has difficulty remembering names but does not feel she has had cognitive changes otherwise. She denies HI or AVH. Past psychiatric history: Patient denies any history of suicide attempts, psychiatric hospitalizations or psychiatric care. Per facility, patient was admitted in 06/28 and readmitted on 09/28 after hip surgery that led to placement. Her remains in the home but visits daily. They report worsening depression x 2 months and multiple suicidal statements to family and staff over the past 2 days. Patient has also reportedly made homicidal threats about the PCP. She is exit-seeking and reportedly has mood swings. No reported change in sleep or appetite. EKG upon admission: 80 bpm, QTc 415ms Depression: sad, irritable, decreased energy, morbid thinking Dementia: memory impairment Anxiety: worries Hospital Course The patient was admitted to the [facility] on 08/07/16. Upon admission the patient was placed on (suicide, homicide) precautions. Based on the diagnostic interview and collateral information provided by her family, the patient was diagnosed with Major Depressive disorder Recurrent with psychotic features. The patient did report some symptoms in the past consistent with the diagnosis. The patient was noted to be Adderall and Lorazepam. There was concern that the stimulant could be exacerbating the psychotic symptoms of paranoia and agitation prior to presentation. The Adderall was initially held and later discontinued. Lorazepam was tapered to 0.25mg BID and Lexapro was replaced with Sertraline. Prior to the patient's agreement of medication trials, the side effects, risk and benefits of all medications were discussed with the patient and the family. The patient tolerated medications well and without any side effects. During the hospitalization, the patient participated in unit activities, did not have self-harming behavior or aggressive outbursts, and the patient's vital signs remained within normal limits and stable. Throughout the hospitalization, the patient reported improvement of symptoms and resolution of suicidal thoughts. The patient symptoms continued to improve with treatment. The treatment plan was in place. The family was contacted prior to dismissal, remained supportive of the patient and understood the plan of discharge back to intermediate care facility given the need for 24 supervision. At this time, the patient was stable and ready for discharge with follow-up scheduled. Problems: Code Status Do Not Resuscitate Home Meds Active Scripts Lorazepam (Ativan) 0.5 Mg Tablet, 0.25 MG PO BID for 30 Days, #30 TAB Prov:PERLA CRUZ MD 08/16/16 Cyanocobalamin (Vitamin B-12) (Vitamin B-12) 1,000 Mcg Tablet, 1 TAB PO DAILY, # 30 TAB 2 Refills Prov:FABIENNE NEWBY APRN 08/16/16 Sertraline (Sertraline) 100 Mg Tablet, 100 MG PO HS for 28 Days, #28 TAB 0 Refills Prov:PERLA CRUZ MD 08/15/16 Cephalexin (Cephalexin) 500 Mg Capsule, 500 MG PO Q8HR for 3 Days, #9 CAP 0 Refills Prov:PERLA CRUZ MD 08/15/16 Reported Medications Propylene Glycol/Peg 400 (Lubricant Eye Drops) 15 Ml Drops, 1 DROP BOTH EYES DAILY 08/07/16 Sennosides/Docusate Sodium (Senna Plus Tablet) 1 Tab Tablet, 1 TAB PO BID Y for CONSTIPATION 08/07/16 Polyethylene Glycol 3350 (Miralax) 119 Gm Powder, 8.5-17 G PO DAILY Y for CONSTIPATION 08/07/16 Trazodone HCl (Trazodone HCl) 50 Mg Tablet, 50 MG PO HS 08/07/16 Acetaminophen (Tylenol) 325 Mg Tablet, 650 MG PO Q4-6HPRN Y for PAIN 07/17/16 Mirabegron (Myrbetriq) 50 Mg Tab.er.24h, 50 MG PO DAILY 07/17/16 Celecoxib (Celebrex) 100 Mg Capsule, 100 MG PO BID 07/17/16 Fluticasone Propionate (Flonase Allergy Relief 50 mcg/actuation Nasal) 9.9 Ml [place].susp, 1 SPRAY EA NOSTRIL DAILY 07/17/16 Ferrous Sulfate (Iron) 325 Mg Tablet, 325 MG PO WB 07/16/16 Cholecalciferol (Vitamin D3) (Vitamin D3) 400 Unit Tablet, 400 UNIT PO DAILY 07/16/16 Aspirin *EC* (Ecotrin) 325 Mg Tablet.dr, 325 MG PO BID 07/16/16 Albuterol Sulfate (Proair HFA 90 mcg/actuation) 8.5 Gm Hfa.aer.ad, 1 PUFF INH Q4HPRN 05/31/15 Potassium Chloride (Potassium Chloride) 20 Meq Tab.er.prt, 40 MEQ PO BID DISOLVE & MIX WITH PUDDING OR APPLESAUCE 05/31/15 Benzonatate (Benzonatate) 200 Mg Capsule, 200 MG PO TID Y for COUGH 05/31/15 [place]-3S/Dha/Epa/Fish Oil/D3 ([place]-3 + D Softgel) 1 Each Capsule.dr, 1 CAP PO DAILY 05/31/15 Pravastatin Sodium (Pravastatin Sodium) 20 Mg Tablet, 20 MG PO HS 05/31/15 Multivitamins (Multiple Vitamin) 1 Tab Tablet, 1 TAB PO DAILY 07/22/09 Discontinued Reported Medications Cyanocobalamin (Vitamin B-12) (Vitamin B-12) 500 Mcg Tab.subl, 500 MCG SL DAILY 05/31/15 Glucosamine Sulfate 2Kcl (Glucosamine Sulfate) 1,000 Mg Capsule, 1000 MG PO DAILY, MG 08/08/16 [place]-3 Fatty Acids/Fish Oil ([place] 3 1,000 mg Softgel) 1 Each Capsule, 1000 MG PO DAILY 08/08/16 Dextroamphetamine/Amphetamine (Adderall Xr 20 mg Capsule) 20 Mg Cap.er.24h, 20 MG PO DAILY, CAP 08/08/16 Acetaminophen with Codeine (Acetaminophen-Cod #3 Tablet) 300-30 Tablet, 1-2 TAB PO Q4HPRN 07/17/16 Ondansetron (Zofran Odt) 4 Mg Tab.rapdis, 4 MG PO Q6HR Y for NAUSEA 07/17/16 Biotin (Biotin) 10,000 Mcg Capsule, 74098 MCG PO DAILY 07/17/16 Dextroamphetamine/Amphetamine (Adderall Xr 20 mg Capsule) 20 Mg Cap.er.24h, 20 MG PO DAILY 07/16/16 Buspirone HCl (Buspirone HCl) 15 Mg Tablet, 15 MG PO DAILY 07/16/16 Lorazepam (Ativan) 0.5 Mg Tablet, 0.5 MG PO TID Y for ANXIETY 07/16/16 Lorazepam (Lorazepam) 0.5 Mg Tablet, 0.25 MG PO QID 07/16/16 Escitalopram Oxalate (Lexapro) 20 Mg Tablet, 20 MG PO DAILY 05/31/15 Montelukast Sodium (Montelukast Sodium) 10 Mg Tablet, 10 MG PO HS 05/31/15 Glucosamine Sulfate 2Kcl (Glucosamine) 1,000 Mg Tablet, 1000 MCG PO DAILY 05/31/15 Face to Face Encounter I met with patient on 08/15/16 and discussed follow up appointments, medications , and safety plan. Discharge Disposition [facility] PERLA CRUZ MD August 16, 2016 13:45
--- NOTE | 2016-08-17 09:15 | NUR ---
GAS OPERATOR--CALL FROM DAUGHTER [facility] received phone call from pt's daughter/Ade. She said pt. told her that Dr. Frye told her that if therapy assessed her and she can stand, she will be able to go home. Ade was wondering if that was a true statement. SW assured daughter that Dr. Frye did not make that statement to patient. This SW shared that before leaving yesterday, pt. told her that had told her she could go home and start driving again once she was stronger. This SW had advised pt. that Dr. Frye had not made that statement. She was told that the doctor had stated she would not be able to drive anymore and that she would need to remain at [facility] because her is not able to provide the level of care that she requires. This SW offered to draft a letter that would be signed by one of our doctors that states the recommendation is for pt. to remain at [facility] for LTC. Daughter expressed appreciation and thought the letter would be helpful. She asked about whether or not she should proceed with repairing hardware in pt's hip. Daughter is aware of the risk of delirium following the surgery. She was encouraged to talk with the surgeon's office to see if epidural/spinal could be used to reduce risk of increased confusion.
--- NOTE | 2016-08-17 15:02 | NUR ---
CM CM LVM
== END 2016-08-16 09:40 | DRG 885 ==
LOC: ED 14:51 → GEN 16:19
PROVIDERS: ADMIT Psychiatry & Neurology Psychiatry; ATTEND Psychiatry & Neurology Psychiatry
DX: F33.3 Major depressive disorder, recurrent, severe with psychotic symptoms (principal); N39.0 Urinary tract infection, site not specified; R45.851 Suicidal ideations; I25.10 Atherosclerotic heart disease of native coronary artery without angina pectoris; I10 Essential (primary) hypertension; E03.9 Hypothyroidism, unspecified; E78.5 Hyperlipidemia, unspecified; R41.3 Other amnesia; Z66 Do not resuscitate; Z95.1 Presence of aortocoronary bypass graft; Z79.82 Long term (current) use of aspirin
CPT/HCPCS: 36415; 80053; 80061; 80069; 81001; 82607; 82746; 83036; 83735; 84439; 84443; 84481; 85025; 87086; 93005